=== PATIENT | male | born 1990 | race African-American/Black ===

== ENCOUNTER 2020-04-01 16:53 | Inpatient (IN) | payer SELFPAY ==
[~2020-04-01] VITALS: Ht 180.3 cm; Wt 73.5 kg
[~2020-04-01 16:53] MED LIST: FERR325T14 PO; FOLI1TAB16 PO; HYDR4TAB45 PO; HYDR500C PO; MORP30TA83 PO; OXYC15TA61 PO; OXYC30TA3 PO; PANT20TA2 PO
[2020-04-01] MEDS ORDERED: IV NORMAL SALINE 1000ML BAG 1,000 ML IV ONE (17:15)
--- NOTE | 2020-04-01 17:39 | PHYS DOC ---
Past Medical History Past Medical History: Sickle Cell Disease (JACQUELYN VASQUEZ MD) Past Surgical History: Appendectomy, Cholecystectomy (JACQUELYN VASQUEZ MD) Smoking Status: Unknown if ever smoked Alcohol Use: None Drug Use: None (JACQUELYN VASQUEZ MD) General Adult EDM: Chief Complaint: PAIN CONTROL HPI: HPI: Patient is a 29 year old who presents complaining of bilateral knee pain consistent with sickle cell pain crisis. Patient reported to nursing staff that last sickle cell crisis was 4 hours ago. History is severely limited as patient is very lethargic and has to be woken up for every question. She admits she is taking Dilaudid 1 hour prior to arrival. (JACQUELYN VASQUEZ MD) Review of Systems: Review of Systems: Unable to obtain due to lethargy (JACQUELYN VASQUEZ MD) Heart Score: Risk Factors: Risk Factors: DM, Current or recent (<one month) smoker, HTN, HLP, family history of CAD, obesity. Risk Scores: Score 0 - 3: 2.5% MACE over next 6 weeks - Discharge Home Score 4 - 6: 20.3% MACE over next 6 weeks - Admit for Clinical Observation Score 7 - 10: 72.7% MACE over next 6 weeks - Early Invasive Strategies (JACQUELYN VASQUEZ MD) Current Medications: Current Medications Medications (Trade) Dose Ordered Sig/Bianca Start Time Stop Time Status Last Admin Dose Admin Sodium Chloride 1,000 ml @ 0 mls/hr 1X ONCE 04/01/20 17:15 04/01/20 17:16 DC (JACQUELYN VASQUEZ MD) Allergies: Allergies: Allergies Coded Allergies Type Severity Reaction Last Updated Verified No Known Drug Allergies 06/19/18 No (JACQUELYN VASQUEZ MD) Physical Exam: PE: Constitutional: Well developed, well nourished, Cooperative, NAD, non-toxic appearing, lethargic HEENT: Normocephalic, atraumatic, oropharynx moist, EOMI, PERRL, no drainage from eyes, normal conjunctiva Neck: Supple, normal range of motion, no stridor Cardiovascular: RRR, 2+ radial pulses bilaterally, no edema Respiratory: CTA bilaterally, no respiratory distress, no wheezing/crackles Abdomen: Soft, nontender, nondistended, no masses Skin: Warm, dry, intact Extremities: No obvious deformities, bilateral knees: no signs of trauma, no effusion, no erythema, swelling, or warmth Neurologic: GCS 13, moves all extremities (JACQUELYN VASQUEZ MD) EKG: EKG: [] (JACQUELYN VASQUEZ MD) Radiology/Procedures: Radiology/Procedures: [] (JACQUELYN VASQUEZ MD) Course & Med Decision Making: Course & Med Decision Making Pertinent Labs and Imaging studies reviewed. (See chart for details) [] Patient is a 29-year-old with a past medical history of sickle cell who presents to the emergency room complaining of sickle cell pain crisis. Upon arrival to the emergency room patient is lethargic and becomes hypoxic when sleeping. Patient admits to taking Dilaudid 1 hour prior to arrival. It is likely that she is under the influence of narcotics which is causing her lethargy and hypoxia. She was placed on nasal cannula. Basic labs were ordered to evaluate for sickle cell pain crisis. Patient will not be given any further narcotics. We will give her fluids at this time. Patient discussed with oncoming physician who will assume care (JACQUELYN VASQUEZ MD) Dragon Disclaimer: Dragon Disclaimer: This electronic medical record was generated, in whole or in part, using a voice recognition dictation system. (JACQUELYN VASQUEZ MD) Departure Departure Impression: Primary Impression: Acute narcotic intoxication Qualified Codes: F11.920 - Opioid use, unspecified with intoxication, uncomplicated Additional Impression: Sickle cell anemia Qualified Codes: D57.1 - Sickle-cell disease without crisis Disposition: ADMITTED INPATIENT Admitting Physician: OLYA (ANIVAL HDZ Jr., DO) Condition: IMPROVED Referrals: NO PCP (PCP) JACQUELYN VASQUEZ MD April 01, 2020 17:39 ANIVAL HDZ Jr., DO April 01, 2020 20:11
[2020-04-01 18:01] LABS: CALCIUM 8.3 mg/dL (8.5-10.1); CREATININE 1.5 mg/dL (0.7-1.3); GFR 67.4; POTASSIUM 5.1 mmol/L (3.5-5.1)
[2020-04-01 18:08] LABS: ALBUMIN 4.1 g/dL (3.4-5.0); ALBUMIN/GLOBULIN RATIO 1.3 (1.0-1.7); TOTAL BILIRUBIN 2.9 mg/dL (0.2-1.0); TOTAL PROTEIN 7.2 g/dL (6.4-8.2)
[2020-04-01 18:09] LABS: BASO # 0.3 x10^3/uL (0.0-0.2); BASO % 3 % (0-3); EOS # 0.4 x10^3/uL (0.0-0.7); EOS % 4 % (0-3); LYMPH # 2.9 x10^3/uL (1.0-4.8); LYMPH % 27 % (24-48); MEAN CORPUSCULAR HEMOGLOBIN 36 pg (25-35); MEAN CORPUSCULAR HGB CONC 36 g/dL (31-37); MEAN CORPUSCULAR VOLUME 100 fL (79-100); MONO # 1.5 x10^3/uL (0.0-1.1); MONO % 14 % (0-9); NEUT # 5.7 x10^3/uL (1.8-7.7); NEUT % 52 % (31-73); PLATELET COUNT 327 x10^3/uL (140-400); RED BLOOD COUNT 1.91 x10^6/uL (4.30-5.70); RED CELL DISTRIBUTION WIDTH 24.3 % (11.5-14.5); WHITE BLOOD COUNT 10.8 x10^3/uL (4.0-11.0)
[2020-04-01 18:11] LABS: HEMATOCRIT 19.1 % (39.0-53.0)
[2020-04-01 18:41] LABS: % BANDS 1 % (0-9); % EOS 4 % (0-5); % LYMPHS 29 % (24-48); % MONOS 11 % (0-10); % SEGS 55 % (35-66); NUCLEATED RBC 5
[2020-04-01 18:45] LABS: PLT ESTIMATE ADEQUATE (ADEQUATE); POLYCHROMASIA MOD
[2020-04-01 18:46] LABS: ANISOCYTOSIS MOD; SICKLE CELLS FEW; TARGET CELLS FEW
[2020-04-01] MEDS ORDERED: NALOXONE 0.4 MG/ML VIAL. IV ONE (19:00)
[2020-04-01] MEDS ORDERED: ONDANSETRON PF 4 MG/2 ML VIAL. IV PRN (20:30)
[2020-04-01] MEDS ORDERED: HYDROmorphone 2 MG/ML VIAL IV PRN (20:30)
[2020-04-01] MEDS ORDERED: ACETAMINOPHEN 325 MG TABLET. PO PRN (20:30)
[2020-04-01] MEDS: IV NORMAL SALINE 1000ML BAG 1,000 ML IV SCH (21:30)
[2020-04-01] MEDS: ENOXAPARIN 40 MG/0.4 ML SYRINGE. SQ SCH ×2 (21:31→21:34)
--- NOTE | 2020-04-01 22:45 | PDOC1 ---
History and Physical Date of Admission Date of Admission DATE: 04/01/20 TIME: 22:45 History of Present Illness History of Present Illness Ms Krishnan is a 29 yo M (trans female) w/ PMHx sickle cell disease who presents to the emergency room complaining of sickle cell pain crisis. Upon arrival to the emergency room patient is lethargic and became hypoxic when sleeping. Patient admits to taking Dilaudid 1 hour prior to arrival. Found hypoxic into the mid 80s, placed on nasal cannula. Hb 7, reticulocyte 14, bilirubin 2.9, CR 1.5. Placed on IV fluids and admitted for further care Past Medical History Heme/Onc: Anemia NOS, Sickle cell disease Past Surgical History Past Surgical History: Appendectomy, Cholecystectomy Family History Family History: Alcohol Abuse, Depression Social History Smoke: <1 pack per day ALCOHOL: occassional Drugs: Heroin Current Problem List Problem List Problems Medical Problems: (1) Acute narcotic intoxication Status: Acute Current Medications Current Medications Current Medications Sodium Chloride 1,000 ml @ 0 mls/hr 1X ONCE IV Last administered on 04/01/20at 17:48; Start 04/01/20 at 17:15; Stop 04/01/20 at 17:16; Status DC Naloxone HCl (Narcan) 0.4 mg 1X ONCE IV Last administered on 04/01/20at 19:19; Start 04/01/20 at 19:00; Stop 04/01/20 at 19:01; Status DC Ferrous Sulfate (Feosol) 325 mg DAILY PO ; Start 04/02/20 at 09:00 Pantoprazole Sodium (Protonix) 40 mg DAILYAC PO ; Start 04/02/20 at 07:30 Sodium Chloride 1,000 ml @ 150 mls/hr Q6H40M IV Last administered on 04/01/20at 21:30; Start 04/01/20 at 21:00 Ondansetron HCl (Zofran) 4 mg PRN Q4HRS PRN IV NAUSEA/VOMITING 1ST CHOICE; Start 04/01/20 at 20:30 Acetaminophen (Tylenol) 650 mg PRN Q4HRS PRN PO TEMP OVER 100.4F OR MILD PAIN; Start 04/01/20 at 20:30 Hydromorphone HCl (Dilaudid) 0.5 mg PRN Q2HRS PRN IV SEVERE PAIN 7-10; Start 04/01/20 at 20:30 Enoxaparin Sodium (Lovenox 40mg Syringe) 40 mg Q24H SQ ; Start 04/01/20 at 21:00 Oxycodone HCl (Roxicodone) 5 mg PRN Q6HRS PRN PO MODERATE PAIN 4-6; Start 04/01/20 at 20:30 Active Scripts Active Protonix (Pantoprazole Sodium) 20 Mg Tablet.dr 1 Tab PO DAILY Ferrous Sulfate 325 Mg Tablet 1 Tab PO DAILY Allergies Allergies: Coded Allergies: No Known Drug Allergies (Unverified , 06/19/18) ROS General: YES: Fatigue, Malaise; No: Chills, Night Sweats, Appetite, Other PSYCHOLOGICAL ROS: YES: Anxiety; No: Behavioral Disorder, Concentration difficultie, Decreased libido, Depression, Disorientation, Hallucinations, Hostility, Irritablity, Memory difficulties, Mood Swings, Obsessive thoughts, Physical abuse, Sexual abuse, Sl eep disturbances, Suicidal ideation, Other Eyes: No Blurry vision, No Decreased vision, No Double vision, No Dry eyes, No Excessive tearing, No Eye Pain, No Itchy Eyes, No Loss of vision, No Photophobia, No Scotomata, No Uses contacts, No Uses glasses, No Other HEENT: No: Heacaches, Visual Changes, Hearing change, Nasal congestion, Nasal discharge, Oral lesions, Sinus pain, Sore Throat, Epistaxis, Sneezing, Snoring, Tinnitus, Vertigo, Vocal changes, Other ALLERGY AND IMMUNOLOGY: No: Hives, Insect Bite Sensitivity, Itchy/Watery Eyes, Nasal Congestion, Post Nasal Drip, Seasonal Allergies, Other Hematological and Lymphatic: YES: Blood Transfusions; No: Bleeding Problems, Blood Clots, Brusing, Night Sweats, Pallor, Swollen Lymph Nodes, Other ENDOCRINE: No: Breast Changes, Galactorrhea, Hair Pattern Changes, Hot Flashes, Malaise/lethargy, Mood Swings, Palpitations, Polydipsia/polyuria, Skin Changes, Temperature Intolerance, Unexpected Weight Changes, Other Breast: No New/Changing Breast Lumps, No Nipple changes, No Nipple discharge, No Other Respiratory: No: Cough, Hemoptysis, Orthopnea, Pleuritic Pain, Shortness of breath, SOB with excertion, Sputum Changes, Stridor, Tachypnea, Wheezing, Other Cardiovascular: No Chest Pain, No Palpitations, No Orthopnea, No Paroxysmal Noc. Dyspnea, No Edema, No Lt Headedness, No Other Gastrointestinal: No Nausea, No Vomiting, No Abdominal Pain, No Diarrhea, No Constipation, No Melena, No Hematochezia, No Other Genitourinary: No Dysuria, No Frequency, No Incontinence, No Hematuria, No Retention, No Discharge, No Urgency, No Pain, No Flank Pain, No Other, No , No , No , No , No , No , No Musculoskeletal: Yes Joint Pain, Yes Muscle Pain; No Gait Disturbance, No Joint Stiffness, No Joint Swelling, No Muscular Weakness, No Pain In:, No Swelling In:, No Other Neurological: No Behavorial Changes, No Bowel/Bladder ControlChng, No Confusion, No Dizziness, No Gait Disturbance, No Headaches, No Impaired Coord/balance, No Memory Loss, No Numbness/Tingling, No Seizures, No Speech Problems, No Tremors, No Visual Changes, No Weakness, No Other Skin: No Dry Skin, No Eczema, No Hair Changes, No Lumps, No Mole Changes, No Mottling, No Nail Changes, No Pruritus, No Rash, No Skin Lesion Changes, No Other, No Acne Physical Exam General: Cooperative, mild distress, Other (Drowsy) HEENT: Atraumatic, PERRLA, EOMI, Mucous membr. moist/pink Lungs: Clear to auscultation, Normal air movement Heart: S1S2, RRR, no thrills, no rubs, no gallops, no murmurs Abdomen: Normal bowel sounds, Soft, No tenderness, No hepatosplenomegaly, No masses Rectal Exam: not examined Extremities: No clubbing, No cyanosis, No edema, Normal pulses, No tend erness/swelling Skin: No rashes, No breakdown, No significant lesion Neuro: Normal speech, Strength at 5/5 X4 ext, Normal tone, Sensation intact, Cranial nerves 3-12 NL, Reflexes 2+ Vitals Vitals Vital Signs Date Time Temp Pulse Resp B/P (MAP) Pulse Ox O2 Delivery O2 Flow Rate FiO2 04/01/20 21:15 76 16 99 04/01/20 17:00 98.3 137/85 (102) Room Air 98.3 Labs Labs Laboratory Tests Test 04/01/20 17:44 White Blood Count 10.8 x10^3/uL (4.0-11.0) Red Blood Count 1.92 x10^6/uL (4.30-5.70) Hemoglobin 7.0 g/dL (13.0-17.5) Hematocrit 19.1 % (39.0-53.0) Mean Corpuscular Volume 100 fL (79-100) Mean Corpuscular Hemoglobin 36 pg (25-35) Mean Corpuscular Hemoglobin Concent 36 g/dL (31-37) Red Cell Distribution Width 24.3 % (11.5-14.5) Platelet Count 327 x10^3/uL (140-400) Neutrophils (%) (Auto) 52 % (31-73) Lymphocytes (%) (Auto) 27 % (24-48) Monocytes (%) (Auto) 14 % (0-9) Eosinophils (%) (Auto) 4 % (0-3) Basophils (%) (Auto) 3 % (0-3) Neutrophils # (Auto) 5.7 x10^3/uL (1.8-7.7) Lymphocytes # (Auto) 2.9 x10^3/uL (1.0-4.8) Monocytes # (Auto) 1.5 x10^3/uL (0.0-1.1) Eosinophils # (Auto) 0.4 x10^3/uL (0.0-0.7) Basophils # (Auto) 0.3 x10^3/uL (0.0-0.2) Segmented Neutrophils % 55 % (35-66) Band Neutrophils % 1 % (0-9) Lymphocytes % 29 % (24-48) Monocytes % 11 % (0-10) Eosinophils % 4 % (0-5) Nucleated Red Blood Cells 5 Platelet Estimate Adequate (ADEQUATE) Polychromasia Mod Anisocytosis Mod Sickle Cells Few Target Cells Few Absolute Reticulocyte Count 0.272 x10^6/uL (0.020-0.120) Percent Reticulocyte Count 14.2 % (0.5-2.3) Immature Reticulocyte Fraction 0.73 (0.20-0.60) Sodium Level 141 mmol/L (136-145) Potassium Level 5.1 mmol/L (3.5-5.1) Chloride Level 109 mmol/L (98-107) Carbon Dioxide Level 25 mmol/L (21-32) Anion Gap 7 (6-14) Blood Urea Nitrogen 23 mg/dL (8-26) Creatinine 1.5 mg/dL (0.7-1.3) Estimated GFR (Cockcroft-Gault) 67.4 BUN/Creatinine Ratio 15 (6-20) Glucose Level 89 mg/dL (70-99) Calcium Level 8.3 mg/dL (8.5-10.1) Total Bilirubin 2.9 mg/dL (0.2-1.0) Aspartate Amino Transf (AST/SGOT) 55 U/L (15-37) Alanine Aminotransferase (ALT/SGPT) 21 U/L (16-63) Alkaline Phosphatase 55 U/L (46-116) Total Protein 7.2 g/dL (6.4-8.2) Albumin 4.1 g/dL (3.4-5.0) Albumin/Globulin Ratio 1.3 (1.0-1.7) Laboratory Tests Test 04/01/20 17:44 White Blood Count 10.8 x10^3/uL (4.0-11.0) Red Blood Count 1.92 x10^6/uL (4.30-5.70) Hemoglobin 7.0 g/dL (13.0-17.5) Hematocrit 19.1 % (39.0-53.0) Mean Corpuscular Volume 100 fL (79-100) Mean Corpuscular Hemoglobin 36 pg (25-35) Mean Corpuscular Hemoglobin Concent 36 g/dL (31-37) Red Cell Distribution Width 24.3 % (11.5-14.5) Platelet Count 327 x10^3/uL (140-400) Neutrophils (%) (Auto) 52 % (31-73) Lymphocytes (%) (Auto) 27 % (24-48) Monocytes (%) (Auto) 14 % (0-9) Eosinophils (%) (Auto) 4 % (0-3) Basophils (%) (Auto) 3 % (0-3) Neutrophils # (Auto) 5.7 x10^3/uL (1.8-7.7) Lymphocytes # (Auto) 2.9 x10^3/uL (1.0-4.8) Monocytes # (Auto) 1.5 x10^3/uL (0.0-1.1) Eosinophils # (Auto) 0.4 x10^3/uL (0.0-0.7) Basophils # (Auto) 0.3 x10^3/uL (0.0-0.2) Segmented Neutrophils % 55 % (35-66) Band Neutrophils % 1 % (0-9) Lymphocytes % 29 % (24-48) Monocytes % 11 % (0-10) Eosinophils % 4 % (0-5) Nucleated Red Blood Cells 5 Platelet Estimate Adequate (ADEQUATE) Polychromasia Mod Anisocytosis Mod Sickle Cells Few Target Cells Few Absolute Reticulocyte Count 0.272 x10^6/uL (0.020-0.120) Percent Reticulocyte Count 14.2 % (0.5-2.3) Immature Reticulocyte Fraction 0.73 (0.20-0.60) Sodium Level 141 mmol/L (136-145) Potassium Level 5.1 mmol/L (3.5-5.1) Chloride Level 109 mmol/L (98-107) Carbon Dioxide Level 25 mmol/L (21-32) Anion Gap 7 (6-14) Blood Urea Nitrogen 23 mg/dL (8-26) Creatinine 1.5 mg/dL (0.7-1.3) Estimated GFR (Cockcroft-Gault) 67.4 BUN/Creatinine Ratio 15 (6-20) Glucose Level 89 mg/dL (70-99) Calcium Level 8.3 mg/dL (8.5-10.1) Total Bilirubin 2.9 mg/dL (0.2-1.0) Aspartate Amino Transf (AST/SGOT) 55 U/L (15-37) Alanine Aminotransferase (ALT/SGPT) 21 U/L (16-63) Alkaline Phosphatase 55 U/L (46-116) Total Protein 7.2 g/dL (6.4-8.2) Albumin 4.1 g/dL (3.4-5.0) Albumin/Globulin Ratio 1.3 (1.0-1.7) VTE Prophylaxis Ordered VTE Prophylaxis Devices: No VTE Pharmacological Prophylaxi: Yes Assessment/Plan Assessment/Plan A/P: Acute anemia - 2/2 SCD crisis, as needed Dilaudid low dose if she wakes up in the next 4 hours. Narcan was necessary earlier in the shift. Will type and screen, transfuse if Hb drops below 7 tomorrow morning. Acute narcotic intoxication - h/o heroin abuse listed on her chart. Will try to avoid excessive opioids, but they are indicated for SCD pain crisis Sickle cell anemia - as above Elevated bilirubin - 2/2 SCD, will monitor MICHEAL - vasomotor nephropathy from SCD crisis, will hydrate FEN - 150cc/hr NSS, general diet PPX - lovenox FULL CODE DIspo - inpatient RIFFEL,JOSUÉ Mason MD April 01, 2020 22:45
[2020-04-02] VITALS (7 sets, daily range): BP systolic 102–129; BP diastolic 53–85
[2020-04-02 02:48] LABS: BASO # 0.2 x10^3/uL (0.0-0.2); BASO % 2 % (0-3); EOS # 0.4 x10^3/uL (0.0-0.7); EOS % 4 % (0-3); LYMPH # 2.7 x10^3/uL (1.0-4.8); LYMPH % 31 % (24-48); MEAN CORPUSCULAR HEMOGLOBIN 37 pg (25-35); MEAN CORPUSCULAR HGB CONC 37 g/dL (31-37); MEAN CORPUSCULAR VOLUME 101 fL (79-100); MONO # 1.4 x10^3/uL (0.0-1.1); MONO % 16 % (0-9); NEUT % 46 % (31-73); PLATELET COUNT 298 x10^3/uL (140-400); RED BLOOD COUNT 1.75 x10^6/uL (4.30-5.70); RED CELL DISTRIBUTION WIDTH 24.8 % (11.5-14.5); WHITE BLOOD COUNT 8.6 x10^3/uL (4.0-11.0)
[2020-04-02 02:54] LABS: HEMOGLOBIN 6.5 g/dL (13.0-17.5)
[2020-04-02 02:55] LABS: HEMATOCRIT 17.7 % (39.0-53.0)
[2020-04-02 03:25] LABS: ALBUMIN 3.6 g/dL (3.4-5.0); ALBUMIN/GLOBULIN RATIO 1.1 (1.0-1.7); CALCIUM 8.2 mg/dL (8.5-10.1); CREATININE 1.4 mg/dL (0.7-1.3); POTASSIUM 4.7 mmol/L (3.5-5.1); TOTAL BILIRUBIN 2.3 mg/dL (0.2-1.0); TOTAL PROTEIN 6.8 g/dL (6.4-8.2)
[2020-04-02] MEDS: IV NORMAL SALINE 1000ML BAG 1,000 ML IV SCH ×3 (04:13→23:00)
[2020-04-02] MEDS: PANTOPRAZOLE 40 MG TABLET.DR. PO SCH (07:30)
--- NOTE | 2020-04-02 07:39 | NUR ---
Pt assessment taken from Pt history because Pt was noncompliant. Pt very impulsive then would quickly fall fast asleep.
--- NOTE | 2020-04-02 08:40 | NUR ---
Pt refusing to sign consent for blood transfusion.
[2020-04-02] MEDS: FERROUS SULFATE 325 MG TABLET. PO SCH (09:00)
--- NOTE | 2020-04-02 10:44 | PDOC ---
PROGRESS NOTES History of Present Illness History of Present Illness VTE Prophylaxis Ordered VTE Prophylaxis Devices: No VTE Pharmacological Prophylaxi: Yes Assessment/Plan Assessment/Plan A/P: Acute anemia - 2/2 SCD crisis, as needed Dilaudid low dose if she wakes up in the next 4 hours. Narcan was necessary earlier in the shift. Will type and screen, transfuse if Hb drops below 7 tomorrow morning. Acute narcotic intoxication - h/o heroin abuse listed on her chart. Will try to avoid excessive opioids, but they are indicated for SCD pain crisis Sickle cell anemia - as above Elevated bilirubin - 2/2 SCD, will monitor MICHEAL - vasomotor nephropathy from SCD crisis, will hydrate FEN - 150cc/hr NSS, general diet PPX - lovenox FULL CODE DIspo - inpatient consult hematology IV PAIN CONTROL 04/02 REFUSED TRANSFUSION THIS AM D/W RN Vitals Vitals Vital Signs Date Time Temp Pulse Resp B/P (MAP) Pulse Ox O2 Delivery O2 Flow Rate FiO2 04/02/20 08:15 Room Air 04/02/20 07:20 97.8 63 18 129/85 (100) 95 2.0 97.8 Physical Exam General: Oriented X3, Cooperative, mild distress, Other (Drowsy) Lungs: Clear Abdomen: Normal bowel sounds, Soft, No tenderness, No hepatosplenomegaly, No masses Extremities: No clubbing, No cyanosis, No edema, Normal pulses, No tenderness/swelling Skin: No rashes, No breakdown, No significant lesion Labs LABS Laboratory Tests Test 04/01/20 17:44 04/02/20 01:55 White Blood Count 10.8 x10^3/uL (4.0-11.0) 8.6 x10^3/uL (4.0-11.0) Red Blood Count 1.92 x10^6/uL (4.30-5.70) 1.75 x10^6/uL (4.30-5.70) Hemoglobin 7.0 g/dL (13.0-17.5) 6.5 g/dL (13.0-17.5) Hematocrit 19.1 % (39.0-53.0) 17.7 % (39.0-53.0) Mean Corpuscular Volume 100 fL (79-100) 101 fL (79-100) Mean Corpuscular Hemoglobin 36 pg (25-35) 37 pg (25-35) Mean Corpuscular Hemoglobin Concent 36 g/dL (31-37) 37 g/dL (31-37) Red Cell Distribution Width 24.3 % (11.5-14.5) 24.8 % (11.5-14.5) Platelet Count 327 x10^3/uL (140-400) 298 x10^3/uL (140-400) Neutrophils (%) (Auto) 52 % (31-73) 46 % (31-73) Lymphocytes (%) (Auto) 27 % (24-48) 31 % (24-48) Monocytes (%) (Auto) 14 % (0-9) 16 % (0-9) Eosinophils (%) (Auto) 4 % (0-3) 4 % (0-3) Basophils (%) (Auto) 3 % (0-3) 2 % (0-3) Neutrophils # (Auto) 5.7 x10^3/uL (1.8-7.7) 4.0 x10^3/uL (1.8-7.7) Lymphocytes # (Auto) 2.9 x10^3/uL (1.0-4.8) 2.7 x10^3/uL (1.0-4.8) Monocytes # (Auto) 1.5 x10^3/uL (0.0-1.1) 1.4 x10^3/uL (0.0-1.1) Eosinophils # (Auto) 0.4 x10^3/uL (0.0-0.7) 0.4 x10^3/uL (0.0-0.7) Basophils # (Auto) 0.3 x10^3/uL (0.0-0.2) 0.2 x10^3/uL (0.0-0.2) Segmented Neutrophils % 55 % (35-66) Band Neutrophils % 1 % (0-9) Lymphocytes % 29 % (24-48) Monocytes % 11 % (0-10) Eosinophils % 4 % (0-5) Nucleated Red Blood Cells 5 Platelet Estimate Adequate (ADEQUATE) Polychromasia Mod Anisocytosis Mod Sickle Cells Few Target Cells Few Absolute Reticulocyte Count 0.272 x10^6/uL (0.020-0.120) 0.262 x10^6/uL (0.020-0.120) Percent Reticulocyte Count 14.2 % (0.5-2.3) 15.0 % (0.5-2.3) Immature Reticulocyte Fraction 0.73 (0.20-0.60) 0.77 (0.20-0.60) Sodium Level 141 mmol/L (136-145) 144 mmol/L (136-145) Potassium Level 5.1 mmol/L (3.5-5.1) 4.7 mmol/L (3.5-5.1) Chloride Level 109 mmol/L (98-107) 110 mmol/L (98-107) Carbon Dioxide Level 25 mmol/L (21-32) 25 mmol/L (21-32) Anion Gap 7 (6-14) 9 (6-14) Blood Urea Nitrogen 23 mg/dL (8-26) 20 mg/dL (8-26) Creatinine 1.5 mg/dL (0.7-1.3) 1.4 mg/dL (0.7-1.3) Estimated GFR (Cockcroft-Gault) 67.4 73.0 BUN/Creatinine Ratio 15 (6-20) 14 (6-20) Glucose Level 89 mg/dL (70-99) 95 mg/dL (70-99) Calcium Level 8.3 mg/dL (8.5-10.1) 8.2 mg/dL (8.5-10.1) Total Bilirubin 2.9 mg/dL (0.2-1.0) 2.3 mg/dL (0.2-1.0) Aspartate Amino Transf (AST/SGOT) 55 U/L (15-37) 41 U/L (15-37) Alanine Aminotransferase (ALT/SGPT) 21 U/L (16-63) 21 U/L (16-63) Alkaline Phosphatase 55 U/L (46-116) 52 U/L (46-116) Total Protein 7.2 g/dL (6.4-8.2) 6.8 g/dL (6.4-8.2) Albumin 4.1 g/dL (3.4-5.0) 3.6 g/dL (3.4-5.0) Albumin/Globulin Ratio 1.3 (1.0-1.7) 1.1 (1.0-1.7) Assessment and Plan Assessmemt and Plan Problems Medical Problems: (1) Acute narcotic intoxication Status: Acute Comment Review of Relevant I have reviewed the following items amos (where applicable) has been applied. Labs Laboratory Tests Test 04/01/20 17:44 04/02/20 01:55 White Blood Count 10.8 x10^3/uL (4.0-11.0) 8.6 x10^3/uL (4.0-11.0) Red Blood Count 1.92 x10^6/uL (4.30-5.70) 1.75 x10^6/uL (4.30-5.70) Hemoglobin 7.0 g/dL (13.0-17.5) 6.5 g/dL (13.0-17.5) Hematocrit 19.1 % (39.0-53.0) 17.7 % (39.0-53.0) Mean Corpuscular Volume 100 fL (79-100) 101 fL (79-100) Mean Corpuscular Hemoglobin 36 pg (25-35) 37 pg (25-35) Mean Corpuscular Hemoglobin Concent 36 g/dL (31-37) 37 g/dL (31-37) Red Cell Distribution Width 24.3 % (11.5-14.5) 24.8 % (11.5-14.5) Platelet Count 327 x10^3/uL (140-400) 298 x10^3/uL (140-400) Neutrophils (%) (Auto) 52 % (31-73) 46 % (31-73) Lymphocytes (%) (Auto) 27 % (24-48) 31 % (24-48) Monocytes (%) (Auto) 14 % (0-9) 16 % (0-9) Eosinophils (%) (Auto) 4 % (0-3) 4 % (0-3) Basophils (%) (Auto) 3 % (0-3) 2 % (0-3) Neutrophils # (Auto) 5.7 x10^3/uL (1.8-7.7) 4.0 x10^3/uL (1.8-7.7) Lymphocytes # (Auto) 2.9 x10^3/uL (1.0-4.8) 2.7 x10^3/uL (1.0-4.8) Monocytes # (Auto) 1.5 x10^3/uL (0.0-1.1) 1.4 x10^3/uL (0.0-1.1) Eosinophils # (Auto) 0.4 x10^3/uL (0.0-0.7) 0.4 x10^3/uL (0.0-0.7) Basophils # (Auto) 0.3 x10^3/uL (0.0-0.2) 0.2 x10^3/uL (0.0-0.2) Segmented Neutrophils % 55 % (35-66) Band Neutrophils % 1 % (0-9) Lymphocytes % 29 % (24-48) Monocytes % 11 % (0-10) Eosinophils % 4 % (0-5) Nucleated Red Blood Cells 5 Platelet Estimate Adequate (ADEQUATE) Polychromasia Mod Anisocytosis Mod Sickle Cells Few Target Cells Few Absolute Reticulocyte Count 0.272 x10^6/uL (0.020-0.120) 0.262 x10^6/uL (0.020-0.120) Percent Reticulocyte Count 14.2 % (0.5-2.3) 15.0 % (0.5-2.3) Immature Reticulocyte Fraction 0.73 (0.20-0.60) 0.77 (0.20-0.60) Sodium Level 141 mmol/L (136-145) 144 mmol/L (136-145) Potassium Level 5.1 mmol/L (3.5-5.1) 4.7 mmol/L (3.5-5.1) Chloride Level 109 mmol/L (98-107) 110 mmol/L (98-107) Carbon Dioxide Level 25 mmol/L (21-32) 25 mmol/L (21-32) Anion Gap 7 (6-14) 9 (6-14) Blood Urea Nitrogen 23 mg/dL (8-26) 20 mg/dL (8-26) Creatinine 1.5 mg/dL (0.7-1.3) 1.4 mg/dL (0.7-1.3) Estimated GFR (Cockcroft-Gault) 67.4 73.0 BUN/Creatinine Ratio 15 (6-20) 14 (6-20) Glucose Level 89 mg/dL (70-99) 95 mg/dL (70-99) Calcium Level 8.3 mg/dL (8.5-10.1) 8.2 mg/dL (8.5-10.1) Total Bilirubin 2.9 mg/dL (0.2-1.0) 2.3 mg/dL (0.2-1.0) Aspartate Amino Transf (AST/SGOT) 55 U/L (15-37) 41 U/L (15-37) Alanine Aminotransferase (ALT/SGPT) 21 U/L (16-63) 21 U/L (16-63) Alkaline Phosphatase 55 U/L (46-116) 52 U/L (46-116) Total Protein 7.2 g/dL (6.4-8.2) 6.8 g/dL (6.4-8.2) Albumin 4.1 g/dL (3.4-5.0) 3.6 g/dL (3.4-5.0) Albumin/Globulin Ratio 1.3 (1.0-1.7) 1.1 (1.0-1.7) Laboratory Tests Test 04/01/20 17:44 04/02/20 01:55 White Blood Count 10.8 x10^3/uL (4.0-11.0) 8.6 x10^3/uL (4.0-11.0) Red Blood Count 1.92 x10^6/uL (4.30-5.70) 1.75 x10^6/uL (4.30-5.70) Hemoglobin 7.0 g/dL (13.0-17.5) 6.5 g/dL (13.0-17.5) Hematocrit 19.1 % (39.0-53.0) 17.7 % (39.0-53.0) Mean Corpuscular Volume 100 fL (79-100) 101 fL (79-100) Mean Corpuscular Hemoglobin 36 pg (25-35) 37 pg (25-35) Mean Corpuscular Hemoglobin Concent 36 g/dL (31-37) 37 g/dL (31-37) Red Cell Distribution Width 24.3 % (11.5-14.5) 24.8 % (11.5-14.5) Platelet Count 327 x10^3/uL (140-400) 298 x10^3/uL (140-400) Neutrophils (%) (Auto) 52 % (31-73) 46 % (31-73) Lymphocytes (%) (Auto) 27 % (24-48) 31 % (24-48) Monocytes (%) (Auto) 14 % (0-9) 16 % (0-9) Eosinophils (%) (Auto) 4 % (0-3) 4 % (0-3) Basophils (%) (Auto) 3 % (0-3) 2 % (0-3) Neutrophils # (Auto) 5.7 x10^3/uL (1.8-7.7) 4.0 x10^3/uL (1.8-7.7) Lymphocytes # (Auto) 2.9 x10^3/uL (1.0-4.8) 2.7 x10^3/uL (1.0-4.8) Monocytes # (Auto) 1.5 x10^3/uL (0.0-1.1) 1.4 x10^3/uL (0.0-1.1) Eosinophils # (Auto) 0.4 x10^3/uL (0.0-0.7) 0.4 x10^3/uL (0.0-0.7) Basophils # (Auto) 0.3 x10^3/uL (0.0-0.2) 0.2 x10^3/uL (0.0-0.2) Segmented Neutrophils % 55 % (35-66) Band Neutrophils % 1 % (0-9) Lymphocytes % 29 % (24-48) Monocytes % 11 % (0-10) Eosinophils % 4 % (0-5) Nucleated Red Blood Cells 5 Platelet Estimate Adequate (ADEQUATE) Polychromasia Mod Anisocytosis Mod Sickle Cells Few Target Cells Few Absolute Reticulocyte Count 0.272 x10^6/uL (0.020-0.120) 0.262 x10^6/uL (0.020-0.120) Percent Reticulocyte Count 14.2 % (0.5-2.3) 15.0 % (0.5-2.3) Immature Reticulocyte Fraction 0.73 (0.20-0.60) 0.77 (0.20-0.60) Sodium Level 141 mmol/L (136-145) 144 mmol/L (136-145) Potassium Level 5.1 mmol/L (3.5-5.1) 4.7 mmol/L (3.5-5.1) Chloride Level 109 mmol/L (98-107) 110 mmol/L (98-107) Carbon Dioxide Level 25 mmol/L (21-32) 25 mmol/L (21-32) Anion Gap 7 (6-14) 9 (6-14) Blood Urea Nitrogen 23 mg/dL (8-26) 20 mg/dL (8-26) Creatinine 1.5 mg/dL (0.7-1.3) 1.4 mg/dL (0.7-1.3) Estimated GFR (Cockcroft-Gault) 67.4 73.0 BUN/Creatinine Ratio 15 (6-20) 14 (6-20) Glucose Level 89 mg/dL (70-99) 95 mg/dL (70-99) Calcium Level 8.3 mg/dL (8.5-10.1) 8.2 mg/dL (8.5-10.1) Total Bilirubin 2.9 mg/dL (0.2-1.0) 2.3 mg/dL (0.2-1.0) Aspartate Amino Transf (AST/SGOT) 55 U/L (15-37) 41 U/L (15-37) Alanine Aminotransferase (ALT/SGPT) 21 U/L (16-63) 21 U/L (16-63) Alkaline Phosphatase 55 U/L (46-116) 52 U/L (46-116) Total Protein 7.2 g/dL (6.4-8.2) 6.8 g/dL (6.4-8.2) Albumin 4.1 g/dL (3.4-5.0) 3.6 g/dL (3.4-5.0) Albumin/Globulin Ratio 1.3 (1.0-1.7) 1.1 (1.0-1.7) Medications Current Medications Sodium Chloride 1,000 ml @ 0 mls/hr 1X ONCE IV Last administered on 04/01/20at 17:48; Start 04/01/20 at 17:15; Stop 04/01/20 at 17:16; Status DC Naloxone HCl (Narcan) 0.4 mg 1X ONCE IV Last administered on 04/01/20at 19:19; Start 04/01/20 at 19:00; Stop 04/01/20 at 19:01; Status DC Ferrous Sulfate (Feosol) 325 mg DAILY PO ; Start 04/02/20 at 09:00 Pantoprazole Sodium (Protonix) 40 mg DAILYAC PO ; Start 04/02/20 at 07:30 Sodium Chloride 1,000 ml @ 150 mls/hr Q6H40M IV Last administered on 04/02/20at 04:13; Start 04/01/20 at 21:00 Ondansetron HCl (Zofran) 4 mg PRN Q4HRS PRN IV NAUSEA/VOMITING 1ST CHOICE; Start 04/01/20 at 20:30 Acetaminophen (Tylenol) 650 mg PRN Q4HRS PRN PO TEMP OVER 100.4F OR MILD PAIN; Start 04/01/20 at 20:30 Hydromorphone HCl (Dilaudid) 0.5 mg PRN Q2HRS PRN IV SEVERE PAIN 7-10; Start 04/01/20 at 20:30 Enoxaparin Sodium (Lovenox 40mg Syringe) 40 mg Q24H SQ ; Start 04/01/20 at 21:00 Oxycodone HCl (Roxicodone) 5 mg PRN Q6HRS PRN PO MODERATE PAIN 4-6; Start 04/01/20 at 20:30 Active Scripts Active Protonix (Pantoprazole Sodium) 20 Mg Tablet.dr 1 Tab PO DAILY Ferrous Sulfate 325 Mg Tablet 1 Tab PO DAILY Ms Contin (Morphine Sulfate) 30 Mg Tablet.er 1 Tab PO BID Hydrea (Hydroxyurea) 500 Mg Capsule 500 Mg PO DAILY Oxycodone Hcl 30 Mg Tablet 30 Mg PO PRN Q6HRS PRN Folic Acid 1 Mg Tablet 1 Mg PO DAILY Vitals/I & O Vital Sign - Last 24 Hours 04/01/20 04/01/20 04/01/20 04/01/20 17:00 17:03 17:33 18:03 Temp 98.3 98.3 Pulse 73 74 74 70 Resp 18 17 15 15 B/P (MAP) 137/85 (102) Pulse Ox 93 93 98 100 O2 Delivery Room Air 04/01/20 04/01/20 04/01/2020 18:33 19:03 19:33 20:15 Pulse 72 76 79 79 Resp 19 14 16 Pulse Ox 100 99 99 99 04/01/20 04/01/20 04/01/20 04/01/20 20:45 21:00 21:15 23:56 Pulse 76 76 76 Resp 16 16 16 Pulse Ox 99 99 99 O2 Delivery Nasal Cannula O2 Flow Rate 2.0 04/02/20 04/02/20 04/02/20 04/02/20 00:06 03:01 07:20 08:15 Temp 98.7 98.6 97.8 98.7 98.6 97.8 Pulse 79 89 63 Resp 19 19 18 B/P (MAP) 102/57 (72) 120/72 (88) 129/85 (100) Pulse Ox 93 94 95 O2 Delivery Nasal Cannula Nasal Cannula Nasal Cannula Room Air O2 Flow Rate 2.0 2.0 2.0 Intake and Output 04/01/20 04/01/20 04/02/20 15:00 23:00 07:00 Intake Total 1000 ml 1260 ml Balance 1000 ml 1260 ml DAYTON CR MD April 02, 2020 10:44
--- NOTE | 2020-04-02 11:00 | NUR ---
Dr. Ty made aware.
--- NOTE | 2020-04-02 13:40 | NUR ---
SS following for discharge planning. SS reviewed pt chart and discussed with pt RN. Pt is from home and is currently on room air. SS will continue to follow for discharge planning.
--- NOTE | 2020-04-02 19:00 | NUR ---
Asked Pt about administration of Blood. Pt has PRBC x1 ordered Pt refused.
[2020-04-02] MEDS: ENOXAPARIN 40 MG/0.4 ML SYRINGE. SQ SCH (20:45)
[2020-04-03 02:52] VITALS: BP 107/69
[2020-04-03 04:54] LABS: BASO # 0.2 x10^3/uL (0.0-0.2); BASO % 2 % (0-3); EOS # 0.4 x10^3/uL (0.0-0.7); EOS % 4 % (0-3); LYMPH # 3.7 x10^3/uL (1.0-4.8); LYMPH % 36 % (24-48); MEAN CORPUSCULAR HEMOGLOBIN 37 pg (25-35); MEAN CORPUSCULAR HGB CONC 37 g/dL (31-37); MEAN CORPUSCULAR VOLUME 101 fL (79-100); MONO # 1.4 x10^3/uL (0.0-1.1); MONO % 13 % (0-9); NEUT # 4.5 x10^3/uL (1.8-7.7); NEUT % 45 % (31-73); PLATELET COUNT 341 x10^3/uL (140-400); RED CELL DISTRIBUTION WIDTH 24.7 % (11.5-14.5); WHITE BLOOD COUNT 10.2 x10^3/uL (4.0-11.0)
[2020-04-03 05:17] LABS: HEMATOCRIT 19.1 % (39.0-53.0)
[2020-04-03 05:26] LABS: ALBUMIN 3.4 g/dL (3.4-5.0); ALBUMIN/GLOBULIN RATIO 1.2 (1.0-1.7); CALCIUM 8.3 mg/dL (8.5-10.1); CREATININE 1.2 mg/dL (0.7-1.3); GFR 87.2; POTASSIUM 4.9 mmol/L (3.5-5.1); TOTAL BILIRUBIN 2.1 mg/dL (0.2-1.0); TOTAL PROTEIN 6.3 g/dL (6.4-8.2)
[2020-04-03] MEDS: IV NORMAL SALINE 1000ML BAG 1,000 ML IV SCH ×3 (05:42→19:10)
--- NOTE | 2020-04-03 05:47 | NUR ---
Pt would not engage in conversation when repeatedly asked about getting blood transfusion. Lab called a critical result Hct 19.1 and Hgb 7.0.. notified at 0520. Pt still refusing Blood.
[2020-04-03 07:00] VITALS: BP 123/65
[2020-04-03] MEDS: PANTOPRAZOLE 40 MG TABLET.DR. PO SCH (07:30)
--- NOTE | 2020-04-03 08:30 | NUR ---
Refused to speak, keeps eyes closed. Assessment completed. Ate Breakfast and 3 single servings of cereal with 10 pks of sugar, cartons of milk and asked for 2 cans of soda. Refused am meds. Cont. monitor.
[2020-04-03] MEDS: FERROUS SULFATE 325 MG TABLET. PO SCH (09:00)
--- NOTE | 2020-04-03 09:18 | PDOC ---
PROGRESS NOTES Chief Complaint Chief Complaint A/P: Acute anemia - 2/2 SCD crisis, as needed Dilaudid low dose if she wakes up in the next 4 hours. Narcan was necessary earlier in the shift. Will type and screen, transfuse if Hb drops below 7 tomorrow morning. Acute narcotic intoxication - h/o heroin abuse listed on her chart. Will try to avoid excessive opioids, but they are indicated for SCD pain crisis Sickle cell anemia - as above Elevated bilirubin - 2/2 SCD, will monitor MICHEAL - vasomotor nephropathy from SCD crisis, will hydrate FEN - 150cc/hr NSS, general diet PPX - lovenox FULL CODE DIspo - inpatient consult hematology IV PAIN CONTROL History of Present Illness History of Present Illness Ms Krishnan is a 29 yo M (trans female) w/ PMHx sickle cell disease who presents to the emergency room complaining of sickle cell pain crisis. Upon arrival to the emergency room patient is lethargic and became hypoxic when sleeping. Patient admits to taking Dilaudid 1 hour prior to arrival. Found hypoxic into the mid 80s, placed on nasal cannula. Hb 7, reticulocyte 14, bilirubin 2.9, CR 1.5. Placed on IV fluids and admitted for further care 04/02: Hb 6.5. REFUSED TRANSFUSION THIS AM Hb 7 today. Patient tells me "back pain", then rubs eyes for 3.5 minutes, snores and does not respond, but opens eyes wide to sternal rub. Per nursing staff has been eating voraciously, and refusing nearly all medical therapies did not ask for pain medication until an hour ago had been off pain medication for over a day. Creatinine improved to 1.2, LFTs improved. D/W RN Vitals Vitals Vital Signs Date Time Temp Pulse Resp B/P (MAP) Pulse Ox O2 Delivery O2 Flow Rate FiO2 04/03/20 07:00 98.0 87 16 123/65 (84) 98 Room Air 98.0 04/02/20 20:00 2.0 Physical Exam General: Oriented X3, Cooperative, mild distress, Other (Drowsy) Lungs: Clear Abdomen: Normal bowel sounds, Soft, No tenderness, No hepatosplenomegaly, No masses Extremities: No clubbing, No cyanosis, No edema, Normal pulses, No tenderness/swelling Skin: No rashes, No breakdown, No significant lesion Labs LABS Laboratory Tests Test 04/02/20 11:41 04/03/20 04:07 Glucose (Fingerstick) 118 mg/dL (70-99) White Blood Count 10.2 x10^3/uL (4.0-11.0) Red Blood Count 1.90 x10^6/uL (4.30-5.70) Hemoglobin 7.0 g/dL (13.0-17.5) Hematocrit 19.1 % (39.0-53.0) Mean Corpuscular Volume 101 fL (79-100) Mean Corpuscular Hemoglobin 37 pg (25-35) Mean Corpuscular Hemoglobin Concent 37 g/dL (31-37) Red Cell Distribution Width 24.7 % (11.5-14.5) Platelet Count 341 x10^3/uL (140-400) Neutrophils (%) (Auto) 45 % (31-73) Lymphocytes (%) (Auto) 36 % (24-48) Monocytes (%) (Auto) 13 % (0-9) Eosinophils (%) (Auto) 4 % (0-3) Basophils (%) (Auto) 2 % (0-3) Neutrophils # (Auto) 4.5 x10^3/uL (1.8-7.7) Lymphocytes # (Auto) 3.7 x10^3/uL (1.0-4.8) Monocytes # (Auto) 1.4 x10^3/uL (0.0-1.1) Eosinophils # (Auto) 0.4 x10^3/uL (0.0-0.7) Basophils # (Auto) 0.2 x10^3/uL (0.0-0.2) Sodium Level 139 mmol/L (136-145) Potassium Level 4.9 mmol/L (3.5-5.1) Chloride Level 106 mmol/L (98-107) Carbon Dioxide Level 25 mmol/L (21-32) Anion Gap 8 (6-14) Blood Urea Nitrogen 18 mg/dL (8-26) Creatinine 1.2 mg/dL (0.7-1.3) Estimated GFR (Cockcroft-Gault) 87.2 BUN/Creatinine Ratio 15 (6-20) Glucose Level 86 mg/dL (70-99) Calcium Level 8.3 mg/dL (8.5-10.1) Total Bilirubin 2.1 mg/dL (0.2-1.0) Aspartate Amino Transf (AST/SGOT) 39 U/L (15-37) Alanine Aminotransferase (ALT/SGPT) 23 U/L (16-63) Alkaline Phosphatase 52 U/L (46-116) Total Protein 6.3 g/dL (6.4-8.2) Albumin 3.4 g/dL (3.4-5.0) Albumin/Globulin Ratio 1.2 (1.0-1.7) Assessment and Plan Assessmemt and Plan Problems Medical Problems: (1) Acute narcotic intoxication Status: Acute Comment Review of Relevant I have reviewed the following items amos (where applicable) has been applied. Labs Laboratory Tests Test 04/01/20 17:44 04/02/20 01:55 04/02/20 11:41 04/03/20 04:07 White Blood Count 10.8 x10^3/uL (4.0-11.0) 8.6 x10^3/uL (4.0-11.0) 10.2 x10^3/uL (4.0-11.0) Red Blood Count 1.92 x10^6/uL (4.30-5.70) 1.75 x10^6/uL (4.30-5.70) 1.90 x10^6/uL (4.30-5.70) Hemoglobin 7.0 g/dL (13.0-17.5) 6.5 g/dL (13.0-17.5) 7.0 g/dL (13.0-17.5) Hematocrit 19.1 % (39.0-53.0) 17.7 % (39.0-53.0) 19.1 % (39.0-53.0) Mean Corpuscular Volume 100 fL (79-100) 101 fL (79-100) 101 fL (79-100) Mean Corpuscular Hemoglobin 36 pg (25-35) 37 pg (25-35) 37 pg (25-35) Mean Corpuscular Hemoglobin Concent 36 g/dL (31-37) 37 g/dL (31-37) 37 g/dL (31-37) Red Cell Distribution Width 24.3 % (11.5-14.5) 24.8 % (11.5-14.5) 24.7 % (11.5-14.5) Platelet Count 327 x10^3/uL (140-400) 298 x10^3/uL (140-400) 341 x10^3/uL (140-400) Neutrophils (%) (Auto) 52 % (31-73) 46 % (31-73) 45 % (31-73) Lymphocytes (%) (Auto) 27 % (24-48) 31 % (24-48) 36 % (24-48) Monocytes (%) (Auto) 14 % (0-9) 16 % (0-9) 13 % (0-9) Eosinophils (%) (Auto) 4 % (0-3) 4 % (0-3) 4 % (0-3) Basophils (%) (Auto) 3 % (0-3) 2 % (0-3) 2 % (0-3) Neutrophils # (Auto) 5.7 x10^3/uL (1.8-7.7) 4.0 x10^3/uL (1.8-7.7) 4.5 x10^3/uL (1.8-7.7) Lymphocytes # (Auto) 2.9 x10^3/uL (1.0-4.8) 2.7 x10^3/uL (1.0-4.8) 3.7 x10^3/uL (1.0-4.8) Monocytes # (Auto) 1.5 x10^3/uL (0.0-1.1) 1.4 x10^3/uL (0.0-1.1) 1.4 x10^3/uL (0.0-1.1) Eosinophils # (Auto) 0.4 x10^3/uL (0.0-0.7) 0.4 x10^3/uL (0.0-0.7) 0.4 x10^3/uL (0.0-0.7) Basophils # (Auto) 0.3 x10^3/uL (0.0-0.2) 0.2 x10^3/uL (0.0-0.2) 0.2 x10^3/uL (0.0-0.2) Segmented Neutrophils % 55 % (35-66) Band Neutrophils % 1 % (0-9) Lymphocytes % 29 % (24-48) Monocytes % 11 % (0-10) Eosinophils % 4 % (0-5) Nucleated Red Blood Cells 5 Platelet Estimate Adequate (ADEQUATE) Polychromasia Mod Anisocytosis Mod Sickle Cells Few Target Cells Few Absolute Reticulocyte Count 0.272 x10^6/uL (0.020-0.120) 0.262 x10^6/uL (0.020-0.120) Percent Reticulocyte Count 14.2 % (0.5-2.3) 15.0 % (0.5-2.3) Immature Reticulocyte Fraction 0.73 (0.20-0.60) 0.77 (0.20-0.60) Sodium Level 141 mmol/L (136-145) 144 mmol/L (136-145) 139 mmol/L (136-145) Potassium Level 5.1 mmol/L (3.5-5.1) 4.7 mmol/L (3.5-5.1) 4.9 mmol/L (3.5-5.1) Chloride Level 109 mmol/L (98-107) 110 mmol/L (98-107) 106 mmol/L (98-107) Carbon Dioxide Level 25 mmol/L (21-32) 25 mmol/L (21-32) 25 mmol/L (21-32) Anion Gap 7 (6-14) 9 (6-14) 8 (6-14) Blood Urea Nitrogen 23 mg/dL (8-26) 20 mg/dL (8-26) 18 mg/dL (8-26) Creatinine 1.5 mg/dL (0.7-1.3) 1.4 mg/dL (0.7-1.3) 1.2 mg/dL (0.7-1.3) Estimated GFR (Cockcroft-Gault) 67.4 73.0 87.2 BUN/Creatinine Ratio 15 (6-20) 14 (6-20) 15 (6-20) Glucose Level 89 mg/dL (70-99) 95 mg/dL (70-99) 86 mg/dL (70-99) Calcium Level 8.3 mg/dL (8.5-10.1) 8.2 mg/dL (8.5-10.1) 8.3 mg/dL (8.5-10.1) Total Bilirubin 2.9 mg/dL (0.2-1.0) 2.3 mg/dL (0.2-1.0) 2.1 mg/dL (0.2-1.0) Aspartate Amino Transf (AST/SGOT) 55 U/L (15-37) 41 U/L (15-37) 39 U/L (15-37) Alanine Aminotransferase (ALT/SGPT) 21 U/L (16-63) 21 U/L (16-63) 23 U/L (16-63) Alkaline Phosphatase 55 U/L (46-116) 52 U/L (46-116) 52 U/L (46-116) Total Protein 7.2 g/dL (6.4-8.2) 6.8 g/dL (6.4-8.2) 6.3 g/dL (6.4-8.2) Albumin 4.1 g/dL (3.4-5.0) 3.6 g/dL (3.4-5.0) 3.4 g/dL (3.4-5.0) Albumin/Globulin Ratio 1.3 (1.0-1.7) 1.1 (1.0-1.7) 1.2 (1.0-1.7) Glucose (Fingerstick) 118 mg/dL (70-99) Laboratory Tests Test 04/02/20 11:41 04/03/20 04:07 Glucose (Fingerstick) 118 mg/dL (70-99) White Blood Count 10.2 x10^3/uL (4.0-11.0) Red Blood Count 1.90 x10^6/uL (4.30-5.70) Hemoglobin 7.0 g/dL (13.0-17.5) Hematocrit 19.1 % (39.0-53.0) Mean Corpuscular Volume 101 fL (79-100) Mean Corpuscular Hemoglobin 37 pg (25-35) Mean Corpuscular Hemoglobin Concent 37 g/dL (31-37) Red Cell Distribution Width 24.7 % (11.5-14.5) Platelet Count 341 x10^3/uL (140-400) Neutrophils (%) (Auto) 45 % (31-73) Lymphocytes (%) (Auto) 36 % (24-48) Monocytes (%) (Auto) 13 % (0-9) Eosinophils (%) (Auto) 4 % (0-3) Basophils (%) (Auto) 2 % (0-3) Neutrophils # (Auto) 4.5 x10^3/uL (1.8-7.7) Lymphocytes # (Auto) 3.7 x10^3/uL (1.0-4.8) Monocytes # (Auto) 1.4 x10^3/uL (0.0-1.1) Eosinophils # (Auto) 0.4 x10^3/uL (0.0-0.7) Basophils # (Auto) 0.2 x10^3/uL (0.0-0.2) Sodium Level 139 mmol/L (136-145) Potassium Level 4.9 mmol/L (3.5-5.1) Chloride Level 106 mmol/L (98-107) Carbon Dioxide Level 25 mmol/L (21-32) Anion Gap 8 (6-14) Blood Urea Nitrogen 18 mg/dL (8-26) Creatinine 1.2 mg/dL (0.7-1.3) Estimated GFR (Cockcroft-Gault) 87.2 BUN/Creatinine Ratio 15 (6-20) Glucose Level 86 mg/dL (70-99) Calcium Level 8.3 mg/dL (8.5-10.1) Total Bilirubin 2.1 mg/dL (0.2-1.0) Aspartate Amino Transf (AST/SGOT) 39 U/L (15-37) Alanine Aminotransferase (ALT/SGPT) 23 U/L (16-63) Alkaline Phosphatase 52 U/L (46-116) Total Protein 6.3 g/dL (6.4-8.2) Albumin 3.4 g/dL (3.4-5.0) Albumin/Globulin Ratio 1.2 (1.0-1.7) Medications Current Medications Sodium Chloride 1,000 ml @ 0 mls/hr 1X ONCE IV Last administered on 04/01/20at 17:48; Start 04/01/20 at 17:15; Stop 04/01/20 at 17:16; Status DC Naloxone HCl (Narcan) 0.4 mg 1X ONCE IV Last administered on 04/01/20at 19:19; Start 04/01/20 at 19:00; Stop 04/01/20 at 19:01; Status DC Ferrous Sulfate (Feosol) 325 mg DAILY PO ; Start 04/02/20 at 09:00 Pantoprazole Sodium (Protonix) 40 mg DAILYAC PO ; Start 04/02/20 at 07:30 Sodium Chloride 1,000 ml @ 150 mls/hr Q6H40M IV Last administered on 04/02/20at 23:00; Start 04/01/20 at 21:00; Stop 04/03/20 at 00:33; Status DC Ondansetron HCl (Zofran) 4 mg PRN Q4HRS PRN IV NAUSEA/VOMITING 1ST CHOICE; Start 04/01/20 at 20:30 Acetaminophen (Tylenol) 650 mg PRN Q4HRS PRN PO TEMP OVER 100.4F OR MILD PAIN; Start 04/01/20 at 20:30 Hydromorphone HCl (Dilaudid) 0.5 mg PRN Q2HRS PRN IV SEVERE PAIN 7-10 Last administered on 04/02/20at 17:13; Start 04/01/20 at 20:30 Enoxaparin Sodium (Lovenox 40mg Syringe) 40 mg Q24H SQ ; Start 04/01/20 at 21:00 Oxycodone HCl (Roxicodone) 5 mg PRN Q6HRS PRN PO MODERATE PAIN 4-6; Start 04/01/20 at 20:30 Sodium Chloride 1,000 ml @ 150 mls/hr Q6H40M IV Last administered on 04/03/20at 05:42; Start 04/02/20 at 23:00 Active Scripts Active Protonix (Pantoprazole Sodium) 20 Mg Tablet.dr 1 Tab PO DAILY Ferrous Sulfate 325 Mg Tablet 1 Tab PO DAILY Ms Contin (Morphine Sulfate) 30 Mg Tablet.er 1 Tab PO BID Hydrea (Hydroxyurea) 500 Mg Capsule 500 Mg PO DAILY Oxycodone Hcl 30 Mg Tablet 30 Mg PO PRN Q6HRS PRN Folic Acid 1 Mg Tablet 1 Mg PO DAILY Vitals/I & O Vital Sign - Last 24 Hours 04/02/20 04/02/20 04/02/20 04/02/20 10:46 15:00 17:13 19:07 Temp 98.3 98.2 98.3 98.3 98.2 98.3 Pulse 66 68 77 Resp 16 17 16 B/P (MAP) 111/53 (72) 114/57 (76) 119/70 (86) Pulse Ox 92 92 97 O2 Delivery Room Air Room Air Room Air Nasal Cannula O2 Flow Rate 2.0 2.0 04/02/20 04/02/20 04/03/20 04/03/20 20:00 22:48 02:52 07:00 Temp 98.0 98.3 98.0 98.0 98.3 98.0 Pulse 60 69 87 Resp 16 16 16 B/P (MAP) 123/76 (92) 107/69 (82) 123/65 (84) Pulse Ox 97 93 98 O2 Delivery Nasal Cannula Room Air Room Air Room Air O2 Flow Rate 2.0 Intake and Output 04/02/20 04/02/20 04/03/20 15:00 23:00 07:00 Intake Total 480 ml 540 ml Balance 480 ml 540 ml JOSUÉ CARRENO MD April 03, 2020 09:18
[2020-04-03 11:00] VITALS: BP 125/60
[2020-04-03 15:00] VITALS: BP 120/66
--- NOTE | 2020-04-03 16:02 | NUR ---
SS following up with discharge planning. SS reviewed pt chart and discussed with pt RN. Pt is currently on room air. Discharge plan is to home when ready. SS will continue to follow for discharge planning.
[2020-04-03 19:59] VITALS: BP 116/59
[2020-04-03] MEDS: ENOXAPARIN 40 MG/0.4 ML SYRINGE. SQ SCH (21:00)
[2020-04-03] MEDS: oxyCODONE IR 5 MG TABLET PO PRN (22:17)
[2020-04-03 23:39] VITALS: BP 115/61
[2020-04-04] MEDS: IV NORMAL SALINE 1000ML BAG 1,000 ML IV SCH ×4 (01:32→21:11)
[2020-04-04 03:34] VITALS: BP 121/69
[2020-04-04 07:00] VITALS: BP 123/68
[2020-04-04] MEDS: PANTOPRAZOLE 40 MG TABLET.DR. PO SCH (07:18)
--- NOTE | 2020-04-04 08:18 | PDOC ---
PROGRESS NOTES Chief Complaint Chief Complaint A/P: Acute anemia - 2/2 SCD crisis, improved. No Dilaudid given she is not awakening. Narcan was necessary earlier in the shift. Will type and screen, transfuse if Hb drops below 7 tomorrow morning. Acute narcotic intoxication - h/o heroin abuse listed on her chart. Will try to avoid excessive opioids, but they are indicated for SCD pain crisis Sickle cell anemia - as above Elevated bilirubin - 2/2 SCD, will monitor MICHEAL - vasomotor nephropathy from SCD crisis, will hydrate Hyperkalemia - kayexelate, hydration FEN - 150cc/hr NSS, general diet PPX - lovenox FULL CODE DIspo - inpatient History of Present Illness History of Present Illness Ms Krishnan is a 29 yo M (trans female) w/ PMHx sickle cell disease who presents to the emergency room complaining of sickle cell pain crisis. Upon arrival to the emergency room patient is lethargic and became hypoxic when sleeping. Patient admits to taking Dilaudid 1 hour prior to arrival. Found hypoxic into the mid 80s, placed on nasal cannula. Hb 7, reticulocyte 14, bilirubin 2.9, CR 1.5. Placed on IV fluids and admitted for further care 04/02: Hb 6.5. REFUSED TRANSFUSION THIS AM 04/03: Hb 7 today. Patient tells me "back pain", then rubs eyes for 3.5 minutes, snores and does not respond, but opens eyes wide to sternal rub. Per nursing staff has been eating voraciously, and refusing nearly all medical therapies did not ask for pain medication until an hour ago had been off pain medication for over a day. Creatinine improved to 1.2, LFTs improved. Only required 1 dose of p.o. oxycodone 5 mg over the past 18 hours. K5.8, CR 1.1, Hb 6.4. She refused opening eyes examined during examination despite request. She says he took my IV pain medication away and needed IV pain medication for her back. I am Mike and I am going to burn down off [place]. When asked if she has plans to hurt herself or others specifically she says I am just cannot burn the whole world down. When offered blood transfusion she says blood transfusions kill people I will never have a blood transfusion. Refuses answer when asked if she has had a blood transfusion previously. 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 Plan: Kayexalate, reinsert IV and continue IV fluids. No further IV pain medications. D/W RN, not safe to discharge with K 5.8. Vitals Vitals Vital Signs Date Time Temp Pulse Resp B/P (MAP) Pulse Ox O2 Delivery O2 Flow Rate FiO2 04/04/20 07:00 97.7 83 18 123/68 (86) 91 Room Air 97.7 04/03/20 23:17 2.0 Physical Exam General: Oriented X3, Cooperative, mild distress, Other (Drowsy) Lungs: Clear Abdomen: Normal bowel sounds, Soft, No tenderness, No hepatosplenomegaly, No masses Extremities: No clubbing, No cyanosis, No edema, Normal pulses, No tenderness /swelling Skin: No rashes, No breakdown, No significant lesion Assessment and Plan Assessmemt and Plan Problems Medical Problems: (1) Acute narcotic intoxication Status: Acute Comment Review of Relevant I have reviewed the following items amos (where applicable) has been applied. Labs Laboratory Tests Test 04/02/20 11:41 04/03/20 04:07 Glucose (Fingerstick) 118 mg/dL (70-99) White Blood Count 10.2 x10^3/uL (4.0-11.0) Red Blood Count 1.90 x10^6/uL (4.30-5.70) Hemoglobin 7.0 g/dL (13.0-17.5) Hematocrit 19.1 % (39.0-53.0) Mean Corpuscular Volume 101 fL (79-100) Mean Corpuscular Hemoglobin 37 pg (25-35) Mean Corpuscular Hemoglobin Concent 37 g/dL (31-37) Red Cell Distribution Width 24.7 % (11.5-14.5) Platelet Count 341 x10^3/uL (140-400) Neutrophils (%) (Auto) 45 % (31-73) Lymphocytes (%) (Auto) 36 % (24-48) Monocytes (%) (Auto) 13 % (0-9) Eosinophils (%) (Auto) 4 % (0-3) Basophils (%) (Auto) 2 % (0-3) Neutrophils # (Auto) 4.5 x10^3/uL (1.8-7.7) Lymphocytes # (Auto) 3.7 x10^3/uL (1.0-4.8) Monocytes # (Auto) 1.4 x10^3/uL (0.0-1.1) Eosinophils # (Auto) 0.4 x10^3/uL (0.0-0.7) Basophils # (Auto) 0.2 x10^3/uL (0.0-0.2) Sodium Level 139 mmol/L (136-145) Potassium Level 4.9 mmol/L (3.5-5.1) Chloride Level 106 mmol/L (98-107) Carbon Dioxide Level 25 mmol/L (21-32) Anion Gap 8 (6-14) Blood Urea Nitrogen 18 mg/dL (8-26) Creatinine 1.2 mg/dL (0.7-1.3) Estimated GFR (Cockcroft-Gault) 87.2 BUN/Creatinine Ratio 15 (6-20) Glucose Level 86 mg/dL (70-99) Calcium Level 8.3 mg/dL (8.5-10.1) Total Bilirubin 2.1 mg/dL (0.2-1.0) Aspartate Amino Transf (AST/SGOT) 39 U/L (15-37) Alanine Aminotransferase (ALT/SGPT) 23 U/L (16-63) Alkaline Phosphatase 52 U/L (46-116) Total Protein 6.3 g/dL (6.4-8.2) Albumin 3.4 g/dL (3.4-5.0) Albumin/Globulin Ratio 1.2 (1.0-1.7) Medications Current Medications Sodium Chloride 1,000 ml @ 0 mls/hr 1X ONCE IV Last administered on 04/01/20at 17:48; Start 04/01/20 at 17:15; Stop 04/01/20 at 17:16; Status DC Naloxone HCl (Narcan) 0.4 mg 1X ONCE IV Last administered on 04/01/20at 19:19; Start 04/01/20 at 19:00; Stop 04/01/20 at 19:01; Status DC Ferrous Sulfate (Feosol) 325 mg DAILY PO ; Start 04/02/20 at 09:00 Pantoprazole Sodium (Protonix) 40 mg DAILYAC PO ; Start 04/02/20 at 07:30 Sodium Chloride 1,000 ml @ 150 mls/hr Q6H40M IV Last administered on 04/02/20at 23:00; Start 04/01/20 at 21:00; Stop 04/03/20 at 00:33; Status DC Ondansetron HCl (Zofran) 4 mg PRN Q4HRS PRN IV NAUSEA/VOMITING 1ST CHOICE; Start 04/01/20 at 20:30 Acetaminophen (Tylenol) 650 mg PRN Q4HRS PRN PO TEMP OVER 100.4F OR MILD PAIN; Start 04/01/20 at 20:30 Hydromorphone HCl (Dilaudid) 0.5 mg PRN Q2HRS PRN IV SEVERE PAIN 7-10 Last administered on 04/02/20at 17:13; Start 04/01/20 at 20:30; Stop 04/03/20 at 13:15; Status DC Enoxaparin Sodium (Lovenox 40mg Syringe) 40 mg Q24H SQ ; Start 04/01/20 at 21:00 Oxycodone HCl (Roxicodone) 5 mg PRN Q6HRS PRN PO MODERATE PAIN 4-6 Last administered on 04/03/20at 22:17; Start 04/01/20 at 20:30 Sodium Chloride 1,000 ml @ 150 mls/hr Q6H40M IV Last administered on 04/04/20at 01:32; Start 04/02/20 at 23:00 Active Scripts Active Protonix (Pantoprazole Sodium) 20 Mg Tablet.dr 1 Tab PO DAILY Ferrous Sulfate 325 Mg Tablet 1 Tab PO DAILY Ms Contin (Morphine Sulfate) 30 Mg Tablet.er 1 Tab PO BID Hydrea (Hydroxyurea) 500 Mg Capsule 500 Mg PO DAILY Oxycodone Hcl 30 Mg Tablet 30 Mg PO PRN Q6HRS PRN Folic Acid 1 Mg Tablet 1 Mg PO DAILY Vitals/I & O Vital Sign - Last 24 Hours 04/03/20 04/03/20 04/03/20 04/03/20 08:29 11:00 15:00 19:59 Temp 97.9 98.3 98.6 97.9 98.3 98.6 Pulse 86 78 76 Resp 18 16 16 B/P (MAP) 125/60 (81) 120/66 (84) 116/59 (78) Pulse Ox 97 97 96 O2 Delivery Nasal Cannula Room Air Room Air Room Air O2 Flow Rate 2.0 04/03/20 04/03/20 04/03/20 04/03/20 20:00 22:17 23:17 23:39 Temp 98.8 98.8 Pulse 79 Resp 18 18 18 B/P (MAP) 115/61 (79) Pulse Ox 96 96 96 O2 Delivery Nasal Cannula Nasal Cannula Nasal Cannula Room Air O2 Flow Rate 2.0 2.0 2.0 04/04/20 04/04/20 03:34 07:00 Temp 98.1 97.7 98.1 97.7 Pulse 88 83 Resp 16 18 B/P (MAP) 121/69 (86) 123/68 (86) Pulse Ox 97 91 O2 Delivery Room Air Room Air Intake and Output 04/03/20 04/03/20 04/04/20 15:00 23:00 07:00 Intake Total 2630 ml Balance 2630 ml JOSUÉ CARRENO MD April 04, 2020 08:18
[2020-04-04] MEDS: FERROUS SULFATE 325 MG TABLET. PO SCH (09:00)
--- NOTE | 2020-04-04 09:00 | NUR ---
IV pulled out during night. Pt refuses to have IV to be restarted. Will let Dr. Romano know.
[2020-04-04 09:36] LABS: BASO # 0.1 x10^3/uL (0.0-0.2); BASO % 1 % (0-3); EOS # 0.5 x10^3/uL (0.0-0.7); EOS % 4 % (0-3); LYMPH # 1.9 x10^3/uL (1.0-4.8); LYMPH % 18 % (24-48); MEAN CORPUSCULAR HEMOGLOBIN 36 pg (25-35); MEAN CORPUSCULAR HGB CONC 37 g/dL (31-37); MEAN CORPUSCULAR VOLUME 97 fL (79-100); MONO # 1.4 x10^3/uL (0.0-1.1); MONO % 13 % (0-9); NEUT % 64 % (31-73); PLATELET COUNT 308 x10^3/uL (140-400); RED BLOOD COUNT 1.81 x10^6/uL (4.30-5.70); RED CELL DISTRIBUTION WIDTH 23.4 % (11.5-14.5); WHITE BLOOD COUNT 10.9 x10^3/uL (4.0-11.0)
[2020-04-04 09:40] LABS: HEMATOCRIT 17.6 % (39.0-53.0); HEMOGLOBIN 6.4 g/dL (13.0-17.5)
[2020-04-04 10:04] LABS: ALBUMIN 3.4 g/dL (3.4-5.0); ALBUMIN/GLOBULIN RATIO 1.1 (1.0-1.7); CALCIUM 8.6 mg/dL (8.5-10.1); CREATININE 1.1 mg/dL (0.7-1.3); GFR 96.4; TOTAL BILIRUBIN 1.9 mg/dL (0.2-1.0); TOTAL PROTEIN 6.5 g/dL (6.4-8.2)
[2020-04-04 10:16] LABS: POTASSIUM 5.8 mmol/L (3.5-5.1)
[2020-04-04 10:52] VITALS: BP 120/64
--- NOTE | 2020-04-04 11:00 | NUR ---
In bed with eyes closed. Only time pt initiates in conversation when asking for food. Other sousa refuses to respond. Pt will go to bathroom or comes out to the hallway and gets into refrigerator. But most of the time in bed with eyes closed.
--- NOTE | 2020-04-04 11:43 | NUR ---
SS following up with discharge planning. SS reviewed pt chart and discussed with pt RN. Pt is currently on room air. Hemoglobin is 6.4. Per RN, pt needing blood today. SS will continue to follow for discharge planning.
[2020-04-04] MEDS ORDERED: SODIUM POLYSTYRENE SULFON/SORB 15 GM/60 ML ORAL.SUSP PO ONE (13:15)
[2020-04-04 15:07] VITALS: BP 126/72
[2020-04-04] MEDS ORDERED: HALOPERIDOL 5 MG TABLET. PO PRN (17:45)
[2020-04-04] MEDS: oxyCODONE IR 5 MG TABLET PO PRN (17:52)
--- NOTE | 2020-04-04 18:20 | PDOC1 ---
History & Psych Evaluation Date of Admission: Date of Admission DATE: 04/04/20 TIME: 18:03 Source: Source: Caregiver, Chart review, Patient Identification: Identification He is a 29-year-old trans-male who goes by a female pronoun. Chief Complaint: Chief Complaint Psychosis, noncompliant with treatment plan, restlessness History of Present Illness: HPI: 29-year-old trans-male with sickle cell disease admitted with sickle cell crisis and acute narcotic intoxication secondary to Dilaudid. Received Narcan for reversal of respiratory depression. According to the information, demonstrated psychotic behavior, talking about God. Nursing staff reported that, patient is largely noncompliant, intermittently interactive demanding food. Mostly quiet refusing for medications, however excepting some. When seen, he appears restless refusing to speak out his full name or how he goes by. Complaining of back pain and asking for pain medications. Constantly, ruminating " does it matter" " my back is hurting". Resistant to answer questions, appears to be having hard time focusing on task, at times with staring spells. Mood is dysphoric affect is dysthymic. Admits, admissions in OSH previously. Stating " I do not want to go there". He preferred to get mute and refused to respond further. Past Psychiatric History: Positive psychiatric history with admissions in OSH. Collateral information would help. Past Medical History: Please see medical chart for details. Admitted with acute narcotic intoxication. Family History: Family history of psychiatric illness is not available at this point. Social History: Social History: Reporting, he lives by himself. History of heroin abuse. Current Medications: Current Medications Current Medications Medications (Trade) Dose Ordered Sig/Bianca Start Time Stop Time Status Last Admin Dose Admin Acetaminophen (Tylenol) 650 mg PRN Q4HRS PRN 04/01/20 20:30 Enoxaparin Sodium (Lovenox 40mg Syringe) 40 mg Q24H 04/01/20 21:00 Ferrous Sulfate (Feosol) 325 mg DAILY 04/02/20 09:00 Haloperidol (Haldol) 5 mg QHS PRN 04/04/20 17:45 Hydromorphone HCl (Dilaudid) 0.5 mg PRN Q2HRS PRN 04/01/20 20:30 04/03/20 13:15 DC 04/02/20 17:13 0.5 MG Lorazepam (Ativan) 1 mg PRN Q6HRS PRN 04/04/20 17:45 Naloxone HCl (Narcan) 0.4 mg 1X ONCE 04/01/20 19:00 04/01/20 19:01 DC 04/01/20 19:19 0.4 MG Ondansetron HCl (Zofran) 4 mg PRN Q4HRS PRN 04/01/20 20:30 Oxycodone HCl (Roxicodone) 5 mg PRN Q6HRS PRN 04/01/20 20:30 04/04/20 17:52 5 MG Pantoprazole Sodium (Protonix) 40 mg DAILYAC 04/02/20 07:30 Sodium Polystyrene Sulfonate (Kayexalate) 15 gm 1X ONCE 04/04/20 13:15 04/04/20 13:16 DC 04/04/20 13:51 15 GM Sodium Chloride 1,000 ml @ 150 mls/hr Q6H40M 04/02/20 23:00 04/04/20 01:32 150 MLS/HR Allergies: Allergies: Coded Allergies: shellfish derived (Verified Allergy, Intermediate, 04/02/20) Mental Status Examination: Mental Status Examination Trans-male, young, restless, Uncooperative, resistant to exploration Disoriented Speech is loud at times Thought processes disorganized Denies auditory or visual hallucinations. Denies suicidal or homicidal thoughts. Mood is dysphoric Affect is labile Insight is poor Impulse control is poor Judgment is poor Attention span and concentration poor Memory is impaired ROS: Psychiatric review of system is positive for psychosis, mood instability, and dysphoria. Physical Exam: Refer to Physician's note. POOL NURSE: No focal deficit MSK: No EPS, TDK, or abnormal involuntary movements Vitals: Vitals Vital Signs Date Time Temp Pulse Resp B/P (MAP) Pulse Ox O2 Delivery O2 Flow Rate FiO2 04/04/20 17:52 Room Air 04/04/20 15:07 98.7 98 18 126/72 (90) 92 2.0 98.7 Labs: Labs Laboratory Tests Test 04/03/20 04:07 04/04/20 08:45 White Blood Count 10.2 x10^3/uL (4.0-11.0) 10.9 x10^3/uL (4.0-11.0) Red Blood Count 1.90 x10^6/uL (4.30-5.70) 1.81 x10^6/uL (4.30-5.70) Hemoglobin 7.0 g/dL (13.0-17.5) 6.4 g/dL (13.0-17.5) Hematocrit 19.1 % (39.0-53.0) 17.6 % (39.0-53.0) Mean Corpuscular Volume 101 fL (79-100) 97 fL (79-100) Mean Corpuscular Hemoglobin 37 pg (25-35) 36 pg (25-35) Mean Corpuscular Hemoglobin Concent 37 g/dL (31-37) 37 g/dL (31-37) Red Cell Distribution Width 24.7 % (11.5-14.5) 23.4 % (11.5-14.5) Platelet Count 341 x10^3/uL (140-400) 308 x10^3/uL (140-400) Neutrophils (%) (Auto) 45 % (31-73) 64 % (31-73) Lymphocytes (%) (Auto) 36 % (24-48) 18 % (24-48) Monocytes (%) (Auto) 13 % (0-9) 13 % (0-9) Eosinophils (%) (Auto) 4 % (0-3) 4 % (0-3) Basophils (%) (Auto) 2 % (0-3) 1 % (0-3) Neutrophils # (Auto) 4.5 x10^3/uL (1.8-7.7) 7.0 x10^3/uL (1.8-7.7) Lymphocytes # (Auto) 3.7 x10^3/uL (1.0-4.8) 1.9 x10^3/uL (1.0-4.8) Monocytes # (Auto) 1.4 x10^3/uL (0.0-1.1) 1.4 x10^3/uL (0.0-1.1) Eosinophils # (Auto) 0.4 x10^3/uL (0.0-0.7) 0.5 x10^3/uL (0.0-0.7) Basophils # (Auto) 0.2 x10^3/uL (0.0-0.2) 0.1 x10^3/uL (0.0-0.2) Sodium Level 139 mmol/L (136-145) 137 mmol/L (136-145) Potassium Level 4.9 mmol/L (3.5-5.1) 5.8 mmol/L (3.5-5.1) Chloride Level 106 mmol/L (98-107) 106 mmol/L (98-107) Carbon Dioxide Level 25 mmol/L (21-32) 26 mmol/L (21-32) Anion Gap 8 (6-14) 5 (6-14) Blood Urea Nitrogen 18 mg/dL (8-26) 18 mg/dL (8-26) Creatinine 1.2 mg/dL (0.7-1.3) 1.1 mg/dL (0.7-1.3) Estimated GFR (Cockcroft-Gault) 87.2 96.4 BUN/Creatinine Ratio 15 (6-20) 16 (6-20) Glucose Level 86 mg/dL (70-99) 89 mg/dL (70-99) Calcium Level 8.3 mg/dL (8.5-10.1) 8.6 mg/dL (8.5-10.1) Total Bilirubin 2.1 mg/dL (0.2-1.0) 1.9 mg/dL (0.2-1.0) Aspartate Amino Transf (AST/SGOT) 39 U/L (15-37) 40 U/L (15-37) Alanine Aminotransferase (ALT/SGPT) 23 U/L (16-63) 22 U/L (16-63) Alkaline Phosphatase 52 U/L (46-116) 53 U/L (46-116) Total Protein 6.3 g/dL (6.4-8.2) 6.5 g/dL (6.4-8.2) Albumin 3.4 g/dL (3.4-5.0) 3.4 g/dL (3.4-5.0) Albumin/Globulin Ratio 1.2 (1.0-1.7) 1.1 (1.0-1.7) Laboratory Tests Test 04/04/20 08:45 White Blood Count 10.9 x10^3/uL (4.0-11.0) Red Blood Count 1.81 x10^6/uL (4.30-5.70) Hemoglobin 6.4 g/dL (13.0-17.5) Hematocrit 17.6 % (39.0-53.0) Mean Corpuscular Volume 97 fL (79-100) Mean Corpuscular Hemoglobin 36 pg (25-35) Mean Corpuscular Hemoglobin Concent 37 g/dL (31-37) Red Cell Distribution Width 23.4 % (11.5-14.5) Platelet Count 308 x10^3/uL (140-400) Neutrophils (%) (Auto) 64 % (31-73) Lymphocytes (%) (Auto) 18 % (24-48) Monocytes (%) (Auto) 13 % (0-9) Eosinophils (%) (Auto) 4 % (0-3) Basophils (%) (Auto) 1 % (0-3) Neutrophils # (Auto) 7.0 x10^3/uL (1.8-7.7) Lymphocytes # (Auto) 1.9 x10^3/uL (1.0-4.8) Monocytes # (Auto) 1.4 x10^3/uL (0.0-1.1) Eosinophils # (Auto) 0.5 x10^3/uL (0.0-0.7) Basophils # (Auto) 0.1 x10^3/uL (0.0-0.2) Sodium Level 137 mmol/L (136-145) Potassium Level 5.8 mmol/L (3.5-5.1) Chloride Level 106 mmol/L (98-107) Carbon Dioxide Level 26 mmol/L (21-32) Anion Gap 5 (6-14) Blood Urea Nitrogen 18 mg/dL (8-26) Creatinine 1.1 mg/dL (0.7-1.3) Estimated GFR (Cockcroft-Gault) 96.4 BUN/Creatinine Ratio 16 (6-20) Glucose Level 89 mg/dL (70-99) Calcium Level 8.6 mg/dL (8.5-10.1) Total Bilirubin 1.9 mg/dL (0.2-1.0) Aspartate Amino Transf (AST/SGOT) 40 U/L (15-37) Alanine Aminotransferase (ALT/SGPT) 22 U/L (16-63) Alkaline Phosphatase 53 U/L (46-116) Total Protein 6.5 g/dL (6.4-8.2) Albumin 3.4 g/dL (3.4-5.0) Albumin/Globulin Ratio 1.1 (1.0-1.7) Diagnosis: Diagnosis: 1psychosis, unspecified. Rule out psychosis secondary to general medical condition Rule out primary psychotic disorder 2mood disorder unspecified 3anxiety disorder unspecified 4encephalopathy Assessment: Young trans-male admitted with acute narcotic intoxication and sickle cell crisis, struggling with mood instability and psychosis. Presently, collateral information is limited however, psychosis is either related to sickle cell crisis or primary psychotic disorder evident from previous psychiatric history. He will get benefit with Haldol and Ativan to slow down his brain to improve focus and psychosis. Plan: 1give Ativan 1 mg stat to calm him down, then 1 mg twice daily as needed for agitation/anxiety. 2Haldol 5 mg nightly for psychosis. 3please get collateral information including living circumstances. 4monitor for symptoms, excessive sedation, respiratory depression. In case of excessive sedation avoid giving sedatives or hypnotics. 5psychiatry service will continue to follow along. Thank you for involving inpatient care. DARION HEARN MD April 04, 2020 18:20
[2020-04-04 19:28] VITALS: BP 113/90
--- NOTE | 2020-04-04 20:00 | NUR ---
Spoke to pt. about needing blood products and the reasoning behind it. Pt. still will not agree to getting blood. Pt. agreed to getting IV placed.
[2020-04-04] MEDS: ENOXAPARIN 40 MG/0.4 ML SYRINGE. SQ SCH (21:00)
[2020-04-04] MEDS: LORazepam 1 MG TABLET PO PRN (21:07)
[2020-04-04 23:15] VITALS: BP 128/57
[2020-04-05] MEDS: oxyCODONE IR 5 MG TABLET PO PRN ×4 (00:01→23:45)
[2020-04-05 02:14] VITALS: BP 119/83
[2020-04-05] MEDS: IV NORMAL SALINE 1000ML BAG 1,000 ML IV SCH ×4 (05:58→23:46)
[2020-04-05] MEDS: PANTOPRAZOLE 40 MG TABLET.DR. PO SCH (06:00)
[2020-04-05 07:10] LABS: CALCIUM 8.5 mg/dL (8.5-10.1); CREATININE 1.1 mg/dL (0.7-1.3); GFR 96.4; POTASSIUM 5.4 mmol/L (3.5-5.1)
[2020-04-05 07:38] LABS: BASO # 0.3 x10^3/uL (0.0-0.2); BASO % 3 % (0-3); EOS # 0.5 x10^3/uL (0.0-0.7); EOS % 5 % (0-3); LYMPH # 3.3 x10^3/uL (1.0-4.8); LYMPH % 30 % (24-48); MEAN CORPUSCULAR HEMOGLOBIN 36 pg (25-35); MEAN CORPUSCULAR HGB CONC 37 g/dL (31-37); MEAN CORPUSCULAR VOLUME 96 fL (79-100); MONO # 1.5 x10^3/uL (0.0-1.1); MONO % 13 % (0-9); NEUT # 5.7 x10^3/uL (1.8-7.7); NEUT % 50 % (31-73); PLATELET COUNT 300 x10^3/uL (140-400); RED BLOOD COUNT 1.75 x10^6/uL (4.30-5.70); RED CELL DISTRIBUTION WIDTH 22.9 % (11.5-14.5); WHITE BLOOD COUNT 11.3 x10^3/uL (4.0-11.0)
[2020-04-05 07:52] LABS: HEMATOCRIT 16.9 % (39.0-53.0); HEMOGLOBIN 6.3 g/dL (13.0-17.5)
[2020-04-05 07:59] VITALS: BP 107/48
--- NOTE | 2020-04-05 08:23 | PDOC ---
PROGRESS NOTES Chief Complaint Chief Complaint A/P: Acute anemia - 2/2 SCD crisis, improved. No Dilaudid given she is not awakening. Narcan was necessary earlier in the shift. Will type and screen, transfuse if Hb drops below 7 tomorrow morning. Acute narcotic intoxication - h/o heroin abuse listed on her chart. Will try to avoid excessive opioids, but they are indicated for SCD pain crisis Sickle cell anemia - as above Elevated bilirubin - 2/2 SCD, will monitor MICHEAL - vasomotor nephropathy from SCD crisis, will hydrate Hyperkalemia - kayexelate, hydration FEN - 150cc/hr NSS, general diet PPX - lovenox FULL CODE DIspo - inpatient History of Present Illness History of Present Illness Ms Krishnan is a 29 yo M (trans female) w/ PMHx sickle cell disease who presents to the emergency room complaining of sickle cell pain crisis. Upon arrival to the emergency room patient is lethargic and became hypoxic when sleeping. Patient admits to taking Dilaudid 1 hour prior to arrival. Found hypoxic into the mid 80s, placed on nasal cannula. Hb 7, reticulocyte 14, bilirubin 2.9, CR 1.5. Placed on IV fluids and admitted for further care 04/02: Hb 6.5. REFUSED TRANSFUSION THIS AM 04/03: Hb 7 today. Patient tells me "back pain", then rubs eyes for 3.5 minutes, snores and does not respond, but opens eyes wide to sternal rub. Per nursing staff has been eating voraciously, and refusing nearly all medical therapies did not ask for pain medication until an hour ago had been off pain medication for over a day. Creatinine improved to 1.2, LFTs improved. 04/04: Only required 1 dose of p.o. oxycodone 5 mg over the past 18 hours. K5.8, CR 1.1, Hb 6.4. She refused opening eyes examined during examination despite request. She says he took my IV pain medication away and needed IV pain medication for her back. "I am Mike and I am going to burn down off [place]". When asked if she has plans to hurt herself or others specifically she says "I am just cannot burn the whole world down while here". When offered blood transfusion she says blood transfusions kill people I will never have a b lood transfusion. Refuses answer when asked if she has had a blood transfusion previously. 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 Hb 6.3, K5.4. D/W psychiatric social work liaison yesterday about behavioral issues, found that patient has been institutionalized at OSH twice in the past few years for violent and psychotic behavior and has been diagnosed with schizophrenia. Not on meds. Continues to refuse blood transfusion, requesting IV pain medication. Today refuses to speak with me keeps eyes closed. After leave the room walks on the room goes to the refrigerator and takes all of the putting bumps on the shoulder and walks back in the room. Plan: Kayexalate, reinsert IV and continue IV fluids. No further IV pain medications. D/W RN, not safe to discharge with K elevated and actively psychotic Appreciate psychiatric assistance with her care Vitals Vitals Vital Signs Date Time Temp Pulse Resp B/P (MAP) Pulse Ox O2 Delivery O2 Flow Rate FiO2 04/05/20 03:05 Nasal Cannula 2.0 04/05/20 02:14 98.1 85 16 119/83 (95) 91 98.1 Physical Exam General: Oriented X3, Cooperative, mild distress, Other (Drowsy) Lungs: Clear Abdomen: Normal bowel sounds, Soft, No tenderness, No hepatosplenomegaly, No masses Extremities: No clubbing, No cyanosis, No edema, Normal pulses, No tenderness/swelling Skin: No rashes, No breakdown, No significant lesion Labs LABS Laboratory Tests Test 04/04/20 08:45 04/05/20 06:30 White Blood Count 10.9 x10^3/uL (4.0-11.0) 11.3 x10^3/uL (4.0-11.0) Red Blood Count 1.81 x10^6/uL (4.30-5.70) 1.75 x10^6/uL (4.30-5.70) Hemoglobin 6.4 g/dL (13.0-17.5) 6.3 g/dL (13.0-17.5) Hematocrit 17.6 % (39.0-53.0) 16.9 % (39.0-53.0) Mean Corpuscular Volume 97 fL (79-100) 96 fL (79-100) Mean Corpuscular Hemoglobin 36 pg (25-35) 36 pg (25-35) Mean Corpuscular Hemoglobin Concent 37 g/dL (31-37) 37 g/dL (31-37) Red Cell Distribution Width 23.4 % (11.5-14.5) 22.9 % (11.5-14.5) Platelet Count 308 x10^3/uL (140-400) 300 x10^3/uL (140-400) Neutrophils (%) (Auto) 64 % (31-73) 50 % (31-73) Lymphocytes (%) (Auto) 18 % (24-48) 30 % (24-48) Monocytes (%) (Auto) 13 % (0-9) 13 % (0-9) Eosinophils (%) (Auto) 4 % (0-3) 5 % (0-3) Basophils (%) (Auto) 1 % (0-3) 3 % (0-3) Neutrophils # (Auto) 7.0 x10^3/uL (1.8-7.7) 5.7 x10^3/uL (1.8-7.7) Lymphocytes # (Auto) 1.9 x10^3/uL (1.0-4.8) 3.3 x10^3/uL (1.0-4.8) Monocytes # (Auto) 1.4 x10^3/uL (0.0-1.1) 1.5 x10^3/uL (0.0-1.1) Eosinophils # (Auto) 0.5 x10^3/uL (0.0-0.7) 0.5 x10^3/uL (0.0-0.7) Basophils # (Auto) 0.1 x10^3/uL (0.0-0.2) 0.3 x10^3/uL (0.0-0.2) Sodium Level 137 mmol/L (136-145) 138 mmol/L (136-145) Potassium Level 5.8 mmol/L (3.5-5.1) 5.4 mmol/L (3.5-5.1) Chloride Level 106 mmol/L (98-107) 106 mmol/L (98-107) Carbon Dioxide Level 26 mmol/L (21-32) 25 mmol/L (21-32) Anion Gap 5 (6-14) 7 (6-14) Blood Urea Nitrogen 18 mg/dL (8-26) 18 mg/dL (8-26) Creatinine 1.1 mg/dL (0.7-1.3) 1.1 mg/dL (0.7-1.3) Estimated GFR (Cockcroft-Gault) 96.4 96.4 BUN/Creatinine Ratio 16 (6-20) Glucose Level 89 mg/dL (70-99) 89 mg/dL (70-99) Calcium Level 8.6 mg/dL (8.5-10.1) 8.5 mg/dL (8.5-10.1) Total Bilirubin 1.9 mg/dL (0.2-1.0) Aspartate Amino Transf (AST/SGOT) 40 U/L (15-37) Alanine Aminotransferase (ALT/SGPT) 22 U/L (16-63) Alkaline Phosphatase 53 U/L (46-116) Total Protein 6.5 g/dL (6.4-8.2) Albumin 3.4 g/dL (3.4-5.0) Albumin/Globulin Ratio 1.1 (1.0-1.7) Assessment and Plan Assessmemt and Plan Problems Medical Problems: (1) Acute narcotic intoxication Status: Acute Comment Review of Relevant I have reviewed the following items amos (where applicable) has been applied. Labs Laboratory Tests Test 04/04/20 08:45 04/05/20 06:30 White Blood Count 10.9 x10^3/uL (4.0-11.0) 11.3 x10^3/uL (4.0-11.0) Red Blood Count 1.81 x10^6/uL (4.30-5.70) 1.75 x10^6/uL (4.30-5.70) Hemoglobin 6.4 g/dL (13.0-17.5) 6.3 g/dL (13.0-17.5) Hematocrit 17.6 % (39.0-53.0) 16.9 % (39.0-53.0) Mean Corpuscular Volume 97 fL (79-100) 96 fL (79-100) Mean Corpuscular Hemoglobin 36 pg (25-35) 36 pg (25-35) Mean Corpuscular Hemoglobin Concent 37 g/dL (31-37) 37 g/dL (31-37) Red Cell Distribution Width 23.4 % (11.5-14.5) 22.9 % (11.5-14.5) Platelet Count 308 x10^3/uL (140-400) 300 x10^3/uL (140-400) Neutrophils (%) (Auto) 64 % (31-73) 50 % (31-73) Lymphocytes (%) (Auto) 18 % (24-48) 30 % (24-48) Monocytes (%) (Auto) 13 % (0-9) 13 % (0-9) Eosinophils (%) (Auto) 4 % (0-3) 5 % (0-3) Basophils (%) (Auto) 1 % (0-3) 3 % (0-3) Neutrophils # (Auto) 7.0 x10^3/uL (1.8-7.7) 5.7 x10^3/uL (1.8-7.7) Lymphocytes # (Auto) 1.9 x10^3/uL (1.0-4.8) 3.3 x10^3/uL (1.0-4.8) Monocytes # (Auto) 1.4 x10^3/uL (0.0-1.1) 1.5 x10^3/uL (0.0-1.1) Eosinophils # (Auto) 0.5 x10^3/uL (0.0-0.7) 0.5 x10^3/uL (0.0-0.7) Basophils # (Auto) 0.1 x10^3/uL (0.0-0.2) 0.3 x10^3/uL (0.0-0.2) Sodium Level 137 mmol/L (136-145) 138 mmol/L (136-145) Potassium Level 5.8 mmol/L (3.5-5.1) 5.4 mmol/L (3.5-5.1) Chloride Level 106 mmol/L (98-107) 106 mmol/L (98-107) Carbon Dioxide Level 26 mmol/L (21-32) 25 mmol/L (21-32) Anion Gap 5 (6-14) 7 (6-14) Blood Urea Nitrogen 18 mg/dL (8-26) 18 mg/dL (8-26) Creatinine 1.1 mg/dL (0.7-1.3) 1.1 mg/dL (0.7-1.3) Estimated GFR (Cockcroft-Gault) 96.4 96.4 BUN/Creatinine Ratio 16 (6-20) Glucose Level 89 mg/dL (70-99) 89 mg/dL (70-99) Calcium Level 8.6 mg/dL (8.5-10.1) 8.5 mg/dL (8.5-10.1) Total Bilirubin 1.9 mg/dL (0.2-1.0) Aspartate Amino Transf (AST/SGOT) 40 U/L (15-37) Alanine Aminotransferase (ALT/SGPT) 22 U/L (16-63) Alkaline Phosphatase 53 U/L (46-116) Total Protein 6.5 g/dL (6.4-8.2) Albumin 3.4 g/dL (3.4-5.0) Albumin/Globulin Ratio 1.1 (1.0-1.7) Laboratory Tests Test 04/04/20 08:45 04/05/20 06:30 White Blood Count 10.9 x10^3/uL (4.0-11.0) 11.3 x10^3/uL (4.0-11.0) Red Blood Count 1.81 x10^6/uL (4.30-5.70) 1.75 x10^6/uL (4.30-5.70) Hemoglobin 6.4 g/dL (13.0-17.5) 6.3 g/dL (13.0-17.5) Hematocrit 17.6 % (39.0-53.0) 16.9 % (39.0-53.0) Mean Corpuscular Volume 97 fL (79-100) 96 fL (79-100) Mean Corpuscular Hemoglobin 36 pg (25-35) 36 pg (25-35) Mean Corpuscular Hemoglobin Concent 37 g/dL (31-37) 37 g/dL (31-37) Red Cell Distribution Width 23.4 % (11.5-14.5) 22.9 % (11.5-14.5) Platelet Count 308 x10^3/uL (140-400) 300 x10^3/uL (140-400) Neutrophils (%) (Auto) 64 % (31-73) 50 % (31-73) Lymphocytes (%) (Auto) 18 % (24-48) 30 % (24-48) Monocytes (%) (Auto) 13 % (0-9) 13 % (0-9) Eosinophils (%) (Auto) 4 % (0-3) 5 % (0-3) Basophils (%) (Auto) 1 % (0-3) 3 % (0-3) Neutrophils # (Auto) 7.0 x10^3/uL (1.8-7.7) 5.7 x10^3/uL (1.8-7.7) Lymphocytes # (Auto) 1.9 x10^3/uL (1.0-4.8) 3.3 x10^3/uL (1.0-4.8) Monocytes # (Auto) 1.4 x10^3/uL (0.0-1.1) 1.5 x10^3/uL (0.0-1.1) Eosinophils # (Auto) 0.5 x10^3/uL (0.0-0.7) 0.5 x10^3/uL (0.0-0.7) Basophils # (Auto) 0.1 x10^3/uL (0.0-0.2) 0.3 x10^3/uL (0.0-0.2) Sodium Level 137 mmol/L (136-145) 138 mmol/L (136-145) Potassium Level 5.8 mmol/L (3.5-5.1) 5.4 mmol/L (3.5-5.1) Chloride Level 106 mmol/L (98-107) 106 mmol/L (98-107) Carbon Dioxide Level 26 mmol/L (21-32) 25 mmol/L (21-32) Anion Gap 5 (6-14) 7 (6-14) Blood Urea Nitrogen 18 mg/dL (8-26) 18 mg/dL (8-26) Creatinine 1.1 mg/dL (0.7-1.3) 1.1 mg/dL (0.7-1.3) Estimated GFR (Cockcroft-Gault) 96.4 96.4 BUN/Creatinine Ratio 16 (6-20) Glucose Level 89 mg/dL (70-99) 89 mg/dL (70-99) Calcium Level 8.6 mg/dL (8.5-10.1) 8.5 mg/dL (8.5-10.1) Total Bilirubin 1.9 mg/dL (0.2-1.0) Aspartate Amino Transf (AST/SGOT) 40 U/L (15-37) Alanine Aminotransferase (ALT/SGPT) 22 U/L (16-63) Alkaline Phosphatase 53 U/L (46-116) Total Protein 6.5 g/dL (6.4-8.2) Albumin 3.4 g/dL (3.4-5.0) Albumin/Globulin Ratio 1.1 (1.0-1.7) Medications Current Medications Sodium Chloride 1,000 ml @ 0 mls/hr 1X ONCE IV Last administered on 04/01/20at 17:48; Start 04/01/20 at 17:15; Stop 04/01/20 at 17:16; Status DC Naloxone HCl (Narcan) 0.4 mg 1X ONCE IV Last administered on 04/01/20at 19:19; Start 04/01/20 at 19:00; Stop 04/01/20 at 19:01; Status DC Ferrous Sulfate (Feosol) 325 mg DAILY PO ; Start 04/02/20 at 09:00 Pantoprazole Sodium (Protonix) 40 mg DAILYAC PO ; Start 04/02/20 at 07:30 Sodium Chloride 1,000 ml @ 150 mls/hr Q6H40M IV Last administered on 04/02/20at 23:00; Start 04/01/20 at 21:00; Stop 04/03/20 at 00:33; Status DC Ondansetron HCl (Zofran) 4 mg PRN Q4HRS PRN IV NAUSEA/VOMITING 1ST CHOICE; Start 04/01/20 at 20:30 Acetaminophen (Tylenol) 650 mg PRN Q4HRS PRN PO TEMP OVER 100.4F OR MILD PAIN; Start 04/01/20 at 20:30 Hydromorphone HCl (Dilaudid) 0.5 mg PRN Q2HRS PRN IV SEVERE PAIN 7-10 Last administered on 04/02/20at 17:13; Start 04/01/20 at 20:30; Stop 04/03/20 at 13:15; Status DC Enoxaparin Sodium (Lovenox 40mg Syringe) 40 mg Q24H SQ ; Start 04/01/20 at 21:00 Oxycodone HCl (Roxicodone) 5 mg PRN Q6HRS PRN PO MODERATE PAIN 4-6 Last administered on 04/05/20at 02:05; Start 04/01/20 at 20:30 Sodium Chloride 1,000 ml @ 150 mls/hr Q6H40M IV Last administered on 04/05/20at 05:58; Start 04/02/20 at 23:00 Sodium Polystyrene Sulfonate (Kayexalate) 15 gm 1X ONCE PO Last administered on 04/04/20at 13:51; Start 04/04/20 at 13:15; Stop 04/04/20 at 13:16; Status DC Haloperidol (Haldol) 5 mg QHS PRN PO AGITATION; Start 04/04/20 at 17:45 Lorazepam (Ativan) 1 mg PRN Q6HRS PRN PO ANXIETY / AGITATION Last administered on 04/04/20at 21:07; Start 04/04/20 at 17:45 Active Scripts Active Protonix (Pantoprazole Sodium) 20 Mg Tablet.dr 1 Tab PO DAILY Ferrous Sulfate 325 Mg Tablet 1 Tab PO DAILY Ms Contin (Morphine Sulfate) 30 Mg Tablet.er 1 Tab PO BID Hydrea (Hydroxyurea) 500 Mg Capsule 500 Mg PO DAILY Oxycodone Hcl 30 Mg Tablet 30 Mg PO PRN Q6HRS PRN Folic Acid 1 Mg Tablet 1 Mg PO DAILY Vitals/I & O Vital Sign - Last 24 Hours 04/04/20 04/04/20 04/04/20 04/04/20 10:52 15:07 17:52 19:28 Temp 98.7 98.6 98.7 98.6 Pulse 78 98 89 Resp 16 18 18 B/P (MAP) 120/64 (82) 126/72 (90) 113/90 (98) Pulse Ox 89 92 92 O2 Delivery Room Air Nasal Cannula Room Air Nasal Cannula O2 Flow Rate 2.0 2.0 04/04/20 04/04/20 04/04/20 04/05/20 19:32 20:00 23:15 02:05 Temp 98.3 98.3 Pulse 67 Resp 18 B/P (MAP) 128/57 (80) Pulse Ox 96 O2 Delivery Nasal Cannula Nasal Cannula Nasal Cannula Room Air O2 Flow Rate 2.0 2.0 04/05/20 04/05/20 02:14 03:05 Temp 98.1 98.1 Pulse 85 Resp 16 B/P (MAP) 119/83 (95) Pulse Ox 91 O2 Delivery Room Air Nasal Cannula O2 Flow Rate 2.0 Intake and Output 04/04/20 04/04/20 04/05/20 15:00 23:00 07:00 Intake Total 380 ml 840 ml Balance 380 ml 840 ml JOSUÉ CARRENO MD April 05, 2020 08:23
[2020-04-05] MEDS: SODIUM POLYSTYRENE SULFON/SORB 15 GM/60 ML ORAL.SUSP PO ONE (08:30)
[2020-04-05] MEDS: FERROUS SULFATE 325 MG TABLET. PO SCH ×2 (09:00→15:51)
[2020-04-05 09:46] LABS: ANISOCYTOSIS MOD; PLT ESTIMATE ADEQUATE (ADEQUATE)
[2020-04-05 09:47] LABS: OVALOCYTES PRESENT; POIKILOCYTOSIS PRESENT; POLYCHROMASIA PRESENT; SCHISTOCYTES OCC; SICKLE CELLS PRESENT; TARGET CELLS PRESENT
[2020-04-05 11:59] VITALS: BP 118/50
[2020-04-05] MEDS ORDERED: HALOPERIDOL 5 MG TABLET. PO PRN (12:45)
--- NOTE | 2020-04-05 15:53 | NUR ---
Patient refused medication and blood transfusion at 0800 hours. Patient took morning meds at 1545 hours. Patient still refused blood transfusion
[2020-04-05 15:59] VITALS: BP 119/57
[2020-04-05] MEDS: ENOXAPARIN 40 MG/0.4 ML SYRINGE. SQ SCH (21:00)
[2020-04-06 00:10] VITALS: BP 139/90
[2020-04-06 03:06] VITALS: BP 110/64
[2020-04-06 05:29] LABS: ALBUMIN 3.3 g/dL (3.4-5.0); ALBUMIN/GLOBULIN RATIO 1.1 (1.0-1.7); CALCIUM 8.1 mg/dL (8.5-10.1); CREATININE 1.2 mg/dL (0.7-1.3); GFR 87.2; POTASSIUM 4.7 mmol/L (3.5-5.1); TOTAL BILIRUBIN 1.9 mg/dL (0.2-1.0); TOTAL PROTEIN 6.3 g/dL (6.4-8.2)
[2020-04-06 05:43] LABS: BASO # 0.2 x10^3/uL (0.0-0.2); BASO % 1 % (0-3); EOS # 0.5 x10^3/uL (0.0-0.7); EOS % 4 % (0-3); LYMPH % 32 % (24-48); MEAN CORPUSCULAR HEMOGLOBIN 35 pg (25-35); MEAN CORPUSCULAR HGB CONC 37 g/dL (31-37); MEAN CORPUSCULAR VOLUME 97 fL (79-100); MONO # 2.1 x10^3/uL (0.0-1.1); MONO % 17 % (0-9); NEUT # 5.8 x10^3/uL (1.8-7.7); NEUT % 46 % (31-73); PLATELET COUNT 310 x10^3/uL (140-400); RED BLOOD COUNT 1.72 x10^6/uL (4.30-5.70); RED CELL DISTRIBUTION WIDTH 22.9 % (11.5-14.5); WHITE BLOOD COUNT 12.5 x10^3/uL (4.0-11.0)
[2020-04-06 06:07] LABS: HEMATOCRIT 16.7 % (39.0-53.0); HEMOGLOBIN 6.1 g/dL (13.0-17.5)
[2020-04-06] MEDS: IV NORMAL SALINE 1000ML BAG 1,000 ML IV SCH ×3 (06:58→20:20)
[2020-04-06 07:45] VITALS: BP 128/65
--- NOTE | 2020-04-06 08:32 | PDOC ---
PROGRESS NOTES Chief Complaint Chief Complaint A/P: Acute anemia - 2/2 SCD crisis, improved. No Dilaudid given she is not awakening. Narcan was necessary earlier in the shift. Will type and screen, transfuse if Hb drops below 7 tomorrow morning. Acute narcotic intoxication - h/o heroin abuse listed on her chart. Will try to avoid excessive opioids, but they are indicated for SCD pain crisis Sickle cell anemia - as above Elevated bilirubin - 2/2 SCD, will monitor MICHEAL - vasomotor nephropathy from SCD crisis, will hydrate Hyperkalemia - kayexelate, hydration FEN - 150cc/hr NSS, general diet PPX - lovenox FULL CODE DIspo - inpatient History of Present Illness History of Present Illness Ms Krishnan is a 29 yo M (trans female) w/ PMHx sickle cell disease who presents to the emergency room complaining of sickle cell pain crisis. Upon arrival to the emergency room patient is lethargic and became hypoxic when sleeping. Patient admits to taking Dilaudid 1 hour prior to arrival. Found hypoxic into the mid 80s, placed on nasal cannula. Hb 7, reticulocyte 14, bilirubin 2.9, CR 1.5. Placed on IV fluids and admitted for further care 04/02: Hb 6.5. REFUSED TRANSFUSION THIS AM 04/03: Hb 7 today. Patient tells me "back pain", then rubs eyes for 3.5 minutes, snores and does not respond, but opens eyes wide to sternal rub. Per nursing staff has been eating voraciously, and refusing nearly all medical therapies did not ask for pain medication until an hour ago had been off pain medication for over a day. Creatinine improved to 1.2, LFTs improved. 04/04: Only required 1 dose of p.o. oxycodone 5 mg over the past 18 hours. K5.8, CR 1.1, Hb 6.4. She refused opening eyes examined during examination despite request. She says he took my IV pain medication away and needed IV pain medication for her back. "I am Mike and I am going to burn down off [place]". When asked if she has plans to hurt herself or others specifically she says "I am just cannot burn the whole world down while here". When offered blood transfusion she says blood transfusions kill people I will never have a b lood transfusion. Refuses answer when asked if she has had a blood transfusion previously. 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 04/05: Hb 6.3, K5.4. D/W psychiatric social work liaison yesterday about behavioral issues, found that patient has been institutionalized at OSH twice in the past few years for violent and psychotic behavior and has been diagnosed with schizophrenia. Not on meds. Continues to refuse blood transfusion, requesting IV pain medication. Today refuses to speak with me keeps eyes closed. After leave the room walks on the room goes to the refrigerator and takes all of the putting bumps on the shoulder and walks back in the room. Afebrile overnight. Still on 2L NC O2. Hb 6.1, still refusing transfusion. K4.8. VS stable. Refuses to verbally engage with me or open eyes. CXR obtained with stable cardiomegaly no acute infiltrates, and old appearing left- sided rib and scapular trauma since prior CXR in 2018. Plan: No further IV pain medications. D/W RN, not safe to discharge actively psychotic Appreciate psychiatric assistance with her care, will d/w PAT team if home is a safe d/c plan. Cont to offer transfusion Vitals Vitals Vital Signs Date Time Temp Pulse Resp B/P (MAP) Pulse Ox O2 Delivery O2 Flow Rate FiO2 04/06/20 07:45 75 128/65 (86) 04/06/20 07:09 Nasal Cannula 2.0 04/06/20 03:06 98.4 18 95 98.4 Physical Exam General: Oriented X3, Cooperative, mild distress, Other (Drowsy) Lungs: Clear Abdomen: Normal bowel sounds, Soft, No tenderness, No hepatosplenomegaly, No masses Extremities: No clubbing, No cyanosis, No edema, Normal pulses, No tenderness/swelling Skin: No rashes, No breakdown, No significant lesion Labs LABS Laboratory Tests Test 04/06/20 04:19 White Blood Count 12.5 x10^3/uL (4.0-11.0) Red Blood Count 1.73 x10^6/uL (4.30-5.70) Hemoglobin 6.1 g/dL (13.0-17.5) Hematocrit 16.7 % (39.0-53.0) Mean Corpuscular Volume 97 fL (79-100) Mean Corpuscular Hemoglobin 35 pg (25-35) Mean Corpuscular Hemoglobin Concent 37 g/dL (31-37) Red Cell Distribution Width 22.9 % (11.5-14.5) Platelet Count 310 x10^3/uL (140-400) Neutrophils (%) (Auto) 46 % (31-73) Lymphocytes (%) (Auto) 32 % (24-48) Monocytes (%) (Auto) 17 % (0-9) Eosinophils (%) (Auto) 4 % (0-3) Basophils (%) (Auto) 1 % (0-3) Neutrophils # (Auto) 5.8 x10^3/uL (1.8-7.7) Lymphocytes # (Auto) 4.0 x10^3/uL (1.0-4.8) Monocytes # (Auto) 2.1 x10^3/uL (0.0-1.1) Eosinophils # (Auto) 0.5 x10^3/uL (0.0-0.7) Basophils # (Auto) 0.2 x10^3/uL (0.0-0.2) Absolute Reticulocyte Count 0.166 x10^6/uL (0.020-0.120) Percent Reticulocyte Count 9.6 % (0.5-2.3) Immature Reticulocyte Fraction 0.80 (0.20-0.60) Sodium Level 140 mmol/L (136-145) Potassium Level 4.7 mmol/L (3.5-5.1) Chloride Level 107 mmol/L (98-107) Carbon Dioxide Level 24 mmol/L (21-32) Anion Gap 9 (6-14) Blood Urea Nitrogen 14 mg/dL (8-26) Creatinine 1.2 mg/dL (0.7-1.3) Estimated GFR (Cockcroft-Gault) 87.2 BUN/Creatinine Ratio 12 (6-20) Glucose Level 77 mg/dL (70-99) Calcium Level 8.1 mg/dL (8.5-10.1) Total Bilirubin 1.9 mg/dL (0.2-1.0) Aspartate Amino Transf (AST/SGOT) 66 U/L (15-37) Alanine Aminotransferase (ALT/SGPT) 32 U/L (16-63) Alkaline Phosphatase 48 U/L (46-116) Total Protein 6.3 g/dL (6.4-8.2) Albumin 3.3 g/dL (3.4-5.0) Albumin/Globulin Ratio 1.1 (1.0-1.7) Assessment and Plan Assessmemt and Plan Problems Medical Problems: (1) Acute narcotic intoxication Status: Acute Comment Review of Relevant I have reviewed the following items amos (where applicable) has been applied. Labs Laboratory Tests Test 04/04/20 08:45 04/05/20 06:30 04/06/20 04:19 White Blood Count 10.9 x10^3/uL (4.0-11.0) 11.3 x10^3/uL (4.0-11.0) 12.5 x10^3/uL (4.0-11.0) Red Blood Count 1.81 x10^6/uL (4.30-5.70) 1.75 x10^6/uL (4.30-5.70) 1.73 x10^6/uL (4.30-5.70) Hemoglobin 6.4 g/dL (13.0-17.5) 6.3 g/dL (13.0-17.5) 6.1 g/dL (13.0-17.5) Hematocrit 17.6 % (39.0-53.0) 16.9 % (39.0-53.0) 16.7 % (39.0-53.0) Mean Corpuscular Volume 97 fL (79-100) 96 fL (79-100) 97 fL (79-100) Mean Corpuscular Hemoglobin 36 pg (25-35) 36 pg (25-35) 35 pg (25-35) Mean Corpuscular Hemoglobin Concent 37 g/dL (31-37) 37 g/dL (31-37) 37 g/dL (31-37) Red Cell Distribution Width 23.4 % (11.5-14.5) 22.9 % (11.5-14.5) 22.9 % (11.5-14.5) Platelet Count 308 x10^3/uL (140-400) 300 x10^3/uL (140-400) 310 x10^3/uL (140-400) Neutrophils (%) (Auto) 64 % (31-73) 50 % (31-73) 46 % (31-73) Lymphocytes (%) (Auto) 18 % (24-48) 30 % (24-48) 32 % (24-48) Monocytes (%) (Auto) 13 % (0-9) 13 % (0-9) 17 % (0-9) Eosinophils (%) (Auto) 4 % (0-3) 5 % (0-3) 4 % (0-3) Basophils (%) (Auto) 1 % (0-3) 3 % (0-3) 1 % (0-3) Neutrophils # (Auto) 7.0 x10^3/uL (1.8-7.7) 5.7 x10^3/uL (1.8-7.7) 5.8 x10^3/uL (1.8-7.7) Lymphocytes # (Auto) 1.9 x10^3/uL (1.0-4.8) 3.3 x10^3/uL (1.0-4.8) 4.0 x10^3/uL (1.0-4.8) Monocytes # (Auto) 1.4 x10^3/uL (0.0-1.1) 1.5 x10^3/uL (0.0-1.1) 2.1 x10^3/uL (0.0-1.1) Eosinophils # (Auto) 0.5 x10^3/uL (0.0-0.7) 0.5 x10^3/uL (0.0-0.7) 0.5 x10^3/uL (0.0-0.7) Basophils # (Auto) 0.1 x10^3/uL (0.0-0.2) 0.3 x10^3/uL (0.0-0.2) 0.2 x10^3/uL (0.0-0.2) Sodium Level 137 mmol/L (136-145) 138 mmol/L (136-145) 140 mmol/L (136-145) Potassium Level 5.8 mmol/L (3.5-5.1) 5.4 mmol/L (3.5-5.1) 4.7 mmol/L (3.5-5.1) Chloride Level 106 mmol/L (98-107) 106 mmol/L (98-107) 107 mmol/L (98-107) Carbon Dioxide Level 26 mmol/L (21-32) 25 mmol/L (21-32) 24 mmol/L (21-32) Anion Gap 5 (6-14) 7 (6-14) 9 (6-14) Blood Urea Nitrogen 18 mg/dL (8-26) 18 mg/dL (8-26) 14 mg/dL (8-26) Creatinine 1.1 mg/dL (0.7-1.3) 1.1 mg/dL (0.7-1.3) 1.2 mg/dL (0.7-1.3) Estimated GFR (Cockcroft-Gault) 96.4 96.4 87.2 BUN/Creatinine Ratio 16 (6-20) 12 (6-20) Glucose Level 89 mg/dL (70-99) 89 mg/dL (70-99) 77 mg/dL (70-99) Calcium Level 8.6 mg/dL (8.5-10.1) 8.5 mg/dL (8.5-10.1) 8.1 mg/dL (8.5-10.1) Total Bilirubin 1.9 mg/dL (0.2-1.0) 1.9 mg/dL (0.2-1.0) Aspartate Amino Transf (AST/SGOT) 40 U/L (15-37) 66 U/L (15-37) Alanine Aminotransferase (ALT/SGPT) 22 U/L (16-63) 32 U/L (16-63) Alkaline Phosphatase 53 U/L (46-116) 48 U/L (46-116) Total Protein 6.5 g/dL (6.4-8.2) 6.3 g/dL (6.4-8.2) Albumin 3.4 g/dL (3.4-5.0) 3.3 g/dL (3.4-5.0) Albumin/Globulin Ratio 1.1 (1.0-1.7) 1.1 (1.0-1.7) Platelet Estimate Adequate (ADEQUATE) Large Platelets Present Giant Platelets Occ Polychromasia Present Poikilocytosis Present Anisocytosis Mod Sickle Cells Present Target Cells Present Ovalocytes Present Schistocytes Occ Absolute Reticulocyte Count 0.166 x10^6/uL (0.020-0.120) Percent Reticulocyte Count 9.6 % (0.5-2.3) Immature Reticulocyte Fraction 0.80 (0.20-0.60) Laboratory Tests Test 04/06/20 04:19 White Blood Count 12.5 x10^3/uL (4.0-11.0) Red Blood Count 1.73 x10^6/uL (4.30-5.70) Hemoglobin 6.1 g/dL (13.0-17.5) Hematocrit 16.7 % (39.0-53.0) Mean Corpuscular Volume 97 fL (79-100) Mean Corpuscular Hemoglobin 35 pg (25-35) Mean Corpuscular Hemoglobin Concent 37 g/dL (31-37) Red Cell Distribution Width 22.9 % (11.5-14.5) Platelet Count 310 x10^3/uL (140-400) Neutrophils (%) (Auto) 46 % (31-73) Lymphocytes (%) (Auto) 32 % (24-48) Monocytes (%) (Auto) 17 % (0-9) Eosinophils (%) (Auto) 4 % (0-3) Basophils (%) (Auto) 1 % (0-3) Neutrophils # (Auto) 5.8 x10^3/uL (1.8-7.7) Lymphocytes # (Auto) 4.0 x10^3/uL (1.0-4.8) Monocytes # (Auto) 2.1 x10^3/uL (0.0-1.1) Eosinophils # (Auto) 0.5 x10^3/uL (0.0-0.7) Basophils # (Auto) 0.2 x10^3/uL (0.0-0.2) Absolute Reticulocyte Count 0.166 x10^6/uL (0.020-0.120) Percent Reticulocyte Count 9.6 % (0.5-2.3) Immature Reticulocyte Fraction 0.80 (0.20-0.60) Sodium Level 140 mmol/L (136-145) Potassium Level 4.7 mmol/L (3.5-5.1) Chloride Level 107 mmol/L (98-107) Carbon Dioxide Level 24 mmol/L (21-32) Anion Gap 9 (6-14) Blood Urea Nitrogen 14 mg/dL (8-26) Creatinine 1.2 mg/dL (0.7-1.3) Estimated GFR (Cockcroft-Gault) 87.2 BUN/Creatinine Ratio 12 (6-20) Glucose Level 77 mg/dL (70-99) Calcium Level 8.1 mg/dL (8.5-10.1) Total Bilirubin 1.9 mg/dL (0.2-1.0) Aspartate Amino Transf (AST/SGOT) 66 U/L (15-37) Alanine Aminotransferase (ALT/SGPT) 32 U/L (16-63) Alkaline Phosphatase 48 U/L (46-116) Total Protein 6.3 g/dL (6.4-8.2) Albumin 3.3 g/dL (3.4-5.0) Albumin/Globulin Ratio 1.1 (1.0-1.7) Medications Current Medications Sodium Chloride 1,000 ml @ 0 mls/hr 1X ONCE IV Last administered on 04/01/20at 17:48; Start 04/01/20 at 17:15; Stop 04/01/20 at 17:16; Status DC Naloxone HCl (Narcan) 0.4 mg 1X ONCE IV Last administered on 04/01/20at 19:19; Start 04/01/20 at 19:00; Stop 04/01/20 at 19:01; Status DC Ferrous Sulfate (Feosol) 325 mg DAILY PO Last administered on 04/05/20at 15:51; Start 04/02/20 at 09:00 Pantoprazole Sodium (Protonix) 40 mg DAILYAC PO ; Start 04/02/20 at 07:30 Sodium Chloride 1,000 ml @ 150 mls/hr Q6H40M IV Last administered on 04/02/20at 23:00; Start 04/01/20 at 21:00; Stop 04/03/20 at 00:33; Status DC Ondansetron HCl (Zofran) 4 mg PRN Q4HRS PRN IV NAUSEA/VOMITING 1ST CHOICE; Start 04/01/20 at 20:30 Acetaminophen (Tylenol) 650 mg PRN Q4HRS PRN PO TEMP OVER 100.4F OR MILD PAIN; Start 04/01/20 at 20:30 Hydromorphone HCl (Dilaudid) 0.5 mg PRN Q2HRS PRN IV SEVERE PAIN 7-10 Last administered on 04/02/20at 17:13; Start 04/01/20 at 20:30; Stop 04/03/20 at 13:15; Status DC Enoxaparin Sodium (Lovenox 40mg Syringe) 40 mg Q24H SQ ; Start 04/01/20 at 21:00 Oxycodone HCl (Roxicodone) 5 mg PRN Q6HRS PRN PO MODERATE PAIN 4-6 Last administered on 04/05/20at 23:45; Start 04/01/20 at 20:30 Sodium Chloride 1,000 ml @ 150 mls/hr Q6H40M IV Last administered on 04/06/20at 06:58; Start 04/02/20 at 23:00 Sodium Polystyrene Sulfonate (Kayexalate) 15 gm 1X ONCE PO Last administered on 04/04/20at 13:51; Start 04/04/20 at 13:15; Stop 04/04/20 at 13:16; Status DC Haloperidol (Haldol) 5 mg QHS PRN PO AGITATION; Start 04/04/20 at 17:45; Stop 04/05/20 at 12:36; Status DC Lorazepam (Ativan) 1 mg PRN Q6HRS PRN PO ANXIETY / AGITATION Last administered on 04/04/20at 21:07; Start 04/04/20 at 17:45 Sodium Polystyrene Sulfonate (Kayexalate) 15 gm 1X ONCE PO Last administered on 04/05/20at 08:30; Start 04/05/20 at 08:30; Stop 04/05/20 at 08:31; Status DC Haloperidol (Haldol) 5 mg PRN QHS PRN PO AGITATION, 2ND CHOICE; Start 04/05/20 at 12:45 Active Scripts Active Protonix (Pantoprazole Sodium) 20 Mg Tablet.dr 1 Tab PO DAILY Ferrous Sulfate 325 Mg Tablet 1 Tab PO DAILY Ms Contin (Morphine Sulfate) 30 Mg Tablet.er 1 Tab PO BID Hydrea (Hydroxyurea) 500 Mg Capsule 500 Mg PO DAILY Oxycodone Hcl 30 Mg Tablet 30 Mg PO PRN Q6HRS PRN Folic Acid 1 Mg Tablet 1 Mg PO DAILY Vitals/I & O Vital Sign - Last 24 Hours 04/05/20 04/05/20 04/05/20 04/05/20 11:59 15:51 15:59 16:53 Temp 98.6 98.6 Pulse 98 94 Resp 20 18 12 B/P (MAP) 118/50 (72) 119/57 (77) Pulse Ox 91 91 O2 Delivery Nasal Cannula Nasal Cannula Nasal Cannula O2 Flow Rate 3.0 3.0 2.0 04/05/20 04/05/20 04/05/20 04/06/20 19:00 20:00 23:45 00:10 Temp 98.8 97.7 98.8 97.7 Pulse 90 98 Resp 20 20 B/P (MAP) 139/90 (106) Pulse Ox 92 92 92 O2 Delivery Nasal Cannula Nasal Cannula Nasal Cannula Nasal Cannula O2 Flow Rate 2.0 2.0 04/06/20 04/06/20 04/06/20 04/06/20 00:45 03:06 07:09 07:45 Temp 98.4 98.4 Pulse 71 75 Resp 18 B/P (MAP) 110/64 (79) 128/65 (86) Pulse Ox 92 95 O2 Delivery Nasal Cannula Nasal Cannula Nasal Cannula O2 Flow Rate 2.0 2.0 Intake and Output 04/05/20 04/05/20 04/06/20 15:00 23:00 07:00 Intake Total 560 ml 720 ml Balance 560 ml 720 ml JOSUÉ CARRENO MD April 06, 2020 08:32
[2020-04-06] MEDS: PANTOPRAZOLE 40 MG TABLET.DR. PO SCH (08:58)
[2020-04-06] MEDS: FERROUS SULFATE 325 MG TABLET. PO SCH (08:58)
[2020-04-06] MEDS: oxyCODONE IR 5 MG TABLET PO PRN ×3 (08:59→20:23)
--- NOTE | 2020-04-06 09:42 | RAD ---
CHEST AP ONLY Clinical indications: Hypoxia COMPARISON: November 26, 2015. Findings: Old appearing healed fractures of the lateral aspect of the left rib cage are seen which have occurred since the previous chest x-ray. There is a deformity of the superior body of the left scapula with a displaced bone fragment. This is consistent with an old displaced fracture here. There is linear scarring within the left lower lung zone. No lung consolidation or pulmonary edema or pleural effusion or pneumothorax is seen. Heart size is chronically enlarged. The mediastinum and pulmonary vasculature and both cora are unremarkable otherwise. Impression: No acute lung infiltrate. Old trauma of the left chest. Stable chronic cardiomegaly. Electronically signed by: Live Monroy MD (04/06/2020 9:38 AM) [id number]
[2020-04-06 13:21] VITALS: BP 112/55
--- NOTE | 2020-04-06 18:23 | NUR ---
Patient refused blood transfusion and IV Fluid.
--- NOTE | 2020-04-06 18:25 | NUR ---
Patient refused vitals .
[2020-04-06 19:00] VITALS: BP 117/60
[2020-04-06] MEDS: LORazepam 1 MG TABLET PO PRN (20:22)
[2020-04-06] MEDS: ENOXAPARIN 40 MG/0.4 ML SYRINGE. SQ SCH (21:00)
[2020-04-06 23:00] VITALS: BP 128/71
[2020-04-07 03:00] VITALS: BP 108/61
[2020-04-07] MEDS: IV NORMAL SALINE 1000ML BAG 1,000 ML IV SCH ×2 (03:00→09:40)
[2020-04-07 07:00] VITALS: BP 122/52
[2020-04-07] MEDS: PANTOPRAZOLE 40 MG TABLET.DR. PO SCH (07:30)
--- NOTE | 2020-04-07 08:48 | NUR ---
Pt refused assessment. Would not answer any questions, including name/. Pt complains of being cold and hungry, although breakfast tray at bedside is nearly gone. Additional blanket put on pt. Am meds not administered as pt would not participate in care. Will continue to monitor.
[2020-04-07] MEDS: FERROUS SULFATE 325 MG TABLET. PO SCH (08:52)
--- NOTE | 2020-04-07 09:04 | NUR ---
YASIR following. Discussed with RN, pt from home, refused blood, refusing meds, room air. [facility] following for self pay status. RN anticipates discharge due to pt refusing treatment. YASIR will continue to follow. Addendum: 04/07/20 at 1151 by WESLEY COOLEY PAT referral. YASIR notified Singh [place] will see pt today. YASIR will continue to follow. Addendum: 04/07/20 at 1308 by WESLEY COOLEY Singh met with pt, pt has paranoid schizophrenia dx. Pt denies SI or HI, paranoid about getting blood and having paranoid thoughts. Pt reported her (identifies as female) aunty can pick her up if being discharged. Pt has been cleared by PAT. RN notified.
[2020-04-07 11:00] VITALS: BP 119/60
--- NOTE | 2020-04-07 11:45 | PDOC ---
PROGRESS NOTES Chief Complaint Chief Complaint DISCHARGE DX ======= Acute anemia - 2/2 SCD crisis, improved. No Dilaudid given she is not awakening. Will type and screen, transfuse if Hb drops below 7 BUT PATIENT HAS REFUSED AMA Acute narcotic intoxication - h/o heroin abuse listed on her chart. Will try to avoid excessive opioids, but they are indicated for SCD pain crisis Sickle cell anemia - as above Elevated bilirubin - 2/2 SCD, will monitor MICHEAL - vasomotor nephropathy from SCD crisis, will hydrate Hyperkalemia - kayexelate, hydration FEN - 150cc/hr NSS, general diet PPX - lovenox FULL CODE DIspo - inpatient d/c pt refusing most treatments DESIRES TO GO HOME TODAY D/C PLANNING 24 MIN History of Present Illness History of Present Illness Ms Krishnan is a 29 yo M (trans female) w/ PMHx sickle cell disease who presents to the emergency room complaining of sickle cell pain crisis. Upon arrival to the emergency room patient is lethargic and became hypoxic when sleeping. Patient admits to taking Dilaudid 1 hour prior to arrival. Found hypoxic into the mid 80s, placed on nasal cannula. Hb 7, reticulocyte 14, bilirubin 2.9, CR 1.5. Placed on IV fluids and admitted for further care 04/02: Hb 6.5. REFUSED TRANSFUSION THIS AM 04/03: Hb 7 today. Patient tells me "back pain", then rubs eyes for 3.5 minutes, snores and does not respond, but opens eyes wide to sternal rub. Per nursing staff has been eating voraciously, and refusing nearly all medical therapies did not ask for pain medication until an hour ago had been off pain medication for over a day. Creatinine improved to 1.2, LFTs improved. 04/04: Only required 1 dose of p.o. oxycodone 5 mg over the past 18 hours. K5.8, CR 1.1, Hb 6.4. She refused opening eyes examined during examination despite request. She says he took my IV pain medication away and needed IV pain medication for her back. "I am Mike and I am going to burn down off [place]". When asked if she has plans to hurt herself or others specifically she says "I am just cannot burn the whole world down while here". When offered blo od transfusion she says blood transfusions kill people I will never have a blood transfusion. Refuses answer when asked if she has had a blood transfusion previously. 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 04/05: Hb 6.3, K5.4. D/W psychiatric social work liaison yesterday about behavioral issues, found that patient has been institutionalized [facility] in the past few years for violent and psychotic behavior and has been diagnosed with schizophrenia. Not on meds. Continues to refuse blood transfusion, requesting IV pain medication. Today refuses to speak with me keeps eyes closed. After leave the room walks on the room goes to the refrigerator and takes all of the putting bumps on the shoulder and walks back in the room. Afebrile overnight. Still on 2L NC O2. Hb 6.1, still refusing transfusion. K4.8. VS stable. Refuses to verbally engage with me or open eyes. CXR obtained with stable cardiomegaly no acute infiltrates, and old appearing left- sided rib and scapular trauma since prior CXR in 2018. Plan: No further IV pain medications. D/W RN, not safe to discharge actively psychotic Appreciate psychiatric assistance with her care, will d/w PAT team if home is a safe d/c plan. Cont to offer transfusion Vitals Vitals Vital Signs Date Time Temp Pulse Resp B/P (MAP) Pulse Ox O2 Delivery O2 Flow Rate FiO2 04/07/20 07:00 97.8 81 17 122/52 (75) 93 Room Air 97.8 04/06/20 23:00 2.0 Physical Exam General: Alert, Oriented X3, Cooperative, mild distress, Other (Drowsy) Lungs: Clear Abdomen: Normal bowel sounds, Soft, No tenderness, No hepatosplenomegaly, No masses Extremities: No clubbing, No cyanosis, No edema, Normal pulses, No tenderness/swelling Skin: No rashes, No breakdown, No significant lesion Assessment and Plan Assessmemt and Plan Problems Medical Problems: (1) Acute narcotic intoxication Status: Acute Comment Review of Relevant I have reviewed the following items amos (where applicable) has been applied. Labs Laboratory Tests Test 04/06/20 04:19 White Blood Count 12.5 x10^3/uL (4.0-11.0) Red Blood Count 1.73 x10^6/uL (4.30-5.70) Hemoglobin 6.1 g/dL (13.0-17.5) Hematocrit 16.7 % (39.0-53.0) Mean Corpuscular Volume 97 fL (79-100) Mean Corpuscular Hemoglobin 35 pg (25-35) Mean Corpuscular Hemoglobin Concent 37 g/dL (31-37) Red Cell Distribution Width 22.9 % (11.5-14.5) Platelet Count 310 x10^3/uL (140-400) Neutrophils (%) (Auto) 46 % (31-73) Lymphocytes (%) (Auto) 32 % (24-48) Monocytes (%) (Auto) 17 % (0-9) Eosinophils (%) (Auto) 4 % (0-3) Basophils (%) (Auto) 1 % (0-3) Neutrophils # (Auto) 5.8 x10^3/uL (1.8-7.7) Lymphocytes # (Auto) 4.0 x10^3/uL (1.0-4.8) Monocytes # (Auto) 2.1 x10^3/uL (0.0-1.1) Eosinophils # (Auto) 0.5 x10^3/uL (0.0-0.7) Basophils # (Auto) 0.2 x10^3/uL (0.0-0.2) Absolute Reticulocyte Count 0.166 x10^6/uL (0.020-0.120) Percent Reticulocyte Count 9.6 % (0.5-2.3) Immature Reticulocyte Fraction 0.80 (0.20-0.60) Sodium Level 140 mmol/L (136-145) Potassium Level 4.7 mmol/L (3.5-5.1) Chloride Level 107 mmol/L (98-107) Carbon Dioxide Level 24 mmol/L (21-32) Anion Gap 9 (6-14) Blood Urea Nitrogen 14 mg/dL (8-26) Creatinine 1.2 mg/dL (0.7-1.3) Estimated GFR (Cockcroft-Gault) 87.2 BUN/Creatinine Ratio 12 (6-20) Glucose Level 77 mg/dL (70-99) Calcium Level 8.1 mg/dL (8.5-10.1) Total Bilirubin 1.9 mg/dL (0.2-1.0) Aspartate Amino Transf (AST/SGOT) 66 U/L (15-37) Alanine Aminotransferase (ALT/SGPT) 32 U/L (16-63) Alkaline Phosphatase 48 U/L (46-116) Total Protein 6.3 g/dL (6.4-8.2) Albumin 3.3 g/dL (3.4-5.0) Albumin/Globulin Ratio 1.1 (1.0-1.7) Medications Current Medications Sodium Chloride 1,000 ml @ 0 mls/hr 1X ONCE IV Last administered on 04/01/20at 17:48; Start 04/01/20 at 17:15; Stop 04/01/20 at 17:16; Status DC Naloxone HCl (Narcan) 0.4 mg 1X ONCE IV Last administered on 04/01/20at 19:19; Start 04/01/20 at 19:00; Stop 04/01/20 at 19:01; Status DC Ferrous Sulfate (Feosol) 325 mg DAILY PO Last administered on 04/06/20at 08:58; Start 04/02/20 at 09:00 Pantoprazole Sodium (Protonix) 40 mg DAILYAC PO Last administered on 04/06/20at 08:58; Start 04/02/20 at 07:30 Sodium Chloride 1,000 ml @ 150 mls/hr Q6H40M IV Last administered on 04/02/20at 23:00; Start 04/01/20 at 21:00; Stop 04/03/20 at 00:33; Status DC Ondansetron HCl (Zofran) 4 mg PRN Q4HRS PRN IV NAUSEA/VOMITING 1ST CHOICE; Start 04/01/20 at 20:30 Acetaminophen (Tylenol) 650 mg PRN Q4HRS PRN PO TEMP OVER 100.4F OR MILD PAIN; Start 04/01/20 at 20:30 Hydromorphone HCl (Dilaudid) 0.5 mg PRN Q2HRS PRN IV SEVERE PAIN 7-10 Last administered on 04/02/20at 17:13; Start 04/01/20 at 20:30; Stop 04/03/20 at 13:15; Status DC Enoxaparin Sodium (Lovenox 40mg Syringe) 40 mg Q24H SQ ; Start 04/01/20 at 21:00 Oxycodone HCl (Roxicodone) 5 mg PRN Q6HRS PRN PO MODERATE PAIN 4-6 Last administered on 04/06/20at 20:23; Start 04/01/20 at 20:30 Sodium Chloride 1,000 ml @ 150 mls/hr Q6H40M IV Last administered on 04/06/20at 06:58; Start 04/02/20 at 23:00 Sodium Polystyrene Sulfonate (Kayexalate) 15 gm 1X ONCE PO Last administered on 04/04/20at 13:51; Start 04/04/20 at 13:15; Stop 04/04/20 at 13:16; Status DC Haloperidol (Haldol) 5 mg QHS PRN PO AGITATION; Start 04/04/20 at 17:45; Stop 04/05/20 at 12:36; Status DC Lorazepam (Ativan) 1 mg PRN Q6HRS PRN PO ANXIETY / AGITATION Last administered on 04/06/20at 20:22; Start 04/04/20 at 17:45 Sodium Polystyrene Sulfonate (Kayexalate) 15 gm 1X ONCE PO Last administered on 04/05/20at 08:30; Start 04/05/20 at 08:30; Stop 04/05/20 at 08:31; Status DC Haloperidol (Haldol) 5 mg PRN QHS PRN PO AGITATION, 2ND CHOICE; Start 04/05/20 at 12:45 Active Scripts Active Protonix (Pantoprazole Sodium) 20 Mg Tablet.dr 1 Tab PO DAILY Ferrous Sulfate 325 Mg Tablet 1 Tab PO DAILY Ms Contin (Morphine Sulfate) 30 Mg Tablet.er 1 Tab PO BID Hydrea (Hydroxyurea) 500 Mg Capsule 500 Mg PO DAILY Oxycodone Hcl 30 Mg Tablet 30 Mg PO PRN Q6HRS PRN Folic Acid 1 Mg Tablet 1 Mg PO DAILY Vitals/I & O Vital Sign - Last 24 Hours 04/06/20 04/06/20 04/06/20 04/06/20 13:21 15:00 18:27 19:00 Temp 99.2 99.2 Pulse 94 82 Resp 12 12 20 B/P (MAP) 112/55 (74) 117/60 (79) Pulse Ox 91 O2 Delivery Room Air Room Air Room Air Room Air 04/06/20 04/06/20 04/06/20 04/07/20 20:23 21:23 23:00 03:00 Temp 98.6 98.9 98.6 98.9 Pulse 69 86 Resp 20 20 B/P (MAP) 128/71 (90) 108/61 (77) Pulse Ox 95 95 91 98 O2 Delivery Nasal Cannula Nasal Cannula Nasal Cannula Room Air O2 Flow Rate 2.0 2.0 04/07/20 07:00 Temp 97.8 97.8 Pulse 81 Resp 17 B/P (MAP) 122/52 (75) Pulse Ox 93 O2 Delivery Room Air Intake and Output 04/06/20 04/06/20 04/07/20 14:59 22:59 06:59 Intake Total 200 ml 600 ml 300 ml Balance 200 ml 600 ml 300 ml DAYTON CR MD Apr 07, 2020 11:44
--- NOTE | 2020-04-07 13:53 | PDOC3 ---
Discharge Summary Date of Admission: April 01, 2020 Date of Discharge: Apr 07, 2020 Follow-Up: 3-5 days Admitting Diagnosis comment: DISCHARGE DX ======= Acute anemia - 2/2 SCD crisis, improved. No Dilaudid given she is not awakening. Will type and screen, transfuse if Hb drops below 7 BUT PATIENT HAS REFUSED AMA Acute narcotic intoxication - h/o heroin abuse listed on her chart. Will try to avoid excessive opioids, but they are indicated for SCD pain crisis Sickle cell anemia - as above Elevated bilirubin - 2/2 SCD, will monitor MICHEAL - vasomotor nephropathy from SCD crisis, will hydrate Hyperkalemia - kayexelate, hydration FEN - 150cc/hr NSS, general diet PPX - lovenox FULL CODE DIspo - inpatient d/c pt refusing most treatments DESIRES TO GO HOME TODAY D/C PLANNING 24 MIN History of Present Illness History of Present Illness Ms Krishnan is a 29 yo M (trans female) w/ PMHx sickle cell disease who presents to the emergency room complaining of sickle cell pain crisis. Upon arrival to the emergency room patient is lethargic and became hypoxic when sleeping. Patient admits to taking Dilaudid 1 hour prior to arrival. Found hypoxic into the mid 80s, placed on nasal cannula. Hb 7, reticulocyte 14, bilirubin 2.9, CR 1.5. Placed on IV fluids and admitted for further care 04/02: Hb 6.5. REFUSED TRANSFUSION THIS AM 04/03: Hb 7 today. Patient tells me "back pain", then rubs eyes for 3.5 minutes, snores and does not respond, but opens eyes wide to sternal rub. Per nursing staff has been eating voraciously, and refusing nearly all medical therapies did not ask for pain medication until an hour ago had been off pain medication for over a day. Creatinine improved to 1.2, LFTs improved. 04/04: Only required 1 dose of p.o. oxycodone 5 mg over the past 18 hours. K5.8, CR 1.1, Hb 6.4. She refused opening eyes examined during examination despite request. She says he took my IV pain medication away and needed IV pain medication for her back. "I am Mike and I am going to burn down off [place]". When asked if she has plans to hurt herself or others specifically she says "I am just cannot burn the whole world down while here". When offered blood transfusion she says blood transfusions kill people I will never have a blood transfusion. Refuses answer when asked if she has had a blood transfusion previously. 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 04/05: Hb 6.3, K5.4. D/W psychiatric social work liaison yesterday about behavioral issues, found that patient has been institutionalized [facility] twice in the past few years for violent and psychotic behavior and has been diagnosed with schizophrenia. Not on meds. Continues to refuse blood transfusion, requesting IV pain medication. Today refuses to speak with me keeps eyes closed. After leave the room walks on the room goes to the refrigerator and takes all of the putting bumps on the shoulder and walks back in the room. Afebrile overnight. Still on 2L NC O2. Hb 6.1, still refusing transfusion. K4.8. VS stable. Refuses to verbally engage with me or open eyes. CXR obtained with stable cardiomegaly no acute infiltrates, and old appearing left- sided rib and scapular trauma since prior CXR in 2018. Plan: No further IV pain medications. D/W RN, not safe to discharge actively psychotic Appreciate psychiatric assistance with her care, will d/w PAT team if home is a safe d/c plan. Cont to offer transfusion Vitals Vitals Vital Signs Date Time Temp Pulse Resp B/P (MAP) Pulse Ox O2 Delivery O2 Flow Rate FiO2 04/07/20 07:00 97.8 81 17 122/52 (75) 93 Room Air 97.8 04/06/20 23:00 2.0 Physical Exam General: Alert, Oriented X3, Cooperative, Lungs: Clear Abdomen: Normal bowel sounds, Soft, No tenderness, No hepatosplenomegaly, No masses Extremities: No clubbing, No cyanosis, No edema, Normal pulses, No tenderness/swelling Skin: No rashes, No breakdown, No significant lesion FINAL DIAGNOSIS Problems Medical Problems: (1) Acute narcotic intoxication Status: Acute Brief Hospital Course Mr. Krishnan is a 29 old [sex] who presented with [ SS CRISIS] CONDITION AT DISCHARGE: Improved Discharge Medications Current Medications Sodium Chloride 1,000 ml @ 0 mls/hr 1X ONCE IV Last administered on 04/01/20at 17:48; Start 04/01/20 at 17:15; Stop 04/01/20 at 17:16; Status DC Naloxone HCl (Narcan) 0.4 mg 1X ONCE IV Last administered on 04/01/20at 19:19; Start 04/01/20 at 19:00; Stop 04/01/20 at 19:01; Status DC Ferrous Sulfate (Feosol) 325 mg DAILY PO Last administered on 04/06/20at 08:58; Start 04/02/20 at 09:00 Pantoprazole Sodium (Protonix) 40 mg DAILYAC PO Last administered on 04/06/20at 08:58; Start 04/02/20 at 07:30 Sodium Chloride 1,000 ml @ 150 mls/hr Q6H40M IV Last administered on 04/02/20at 23:00; Start 04/01/20 at 21:00; Stop 04/03/20 at 00:33; Status DC Ondansetron HCl (Zofran) 4 mg PRN Q4HRS PRN IV NAUSEA/VOMITING 1ST CHOICE; Start 04/01/20 at 20:30 Acetaminophen (Tylenol) 650 mg PRN Q4HRS PRN PO TEMP OVER 100.4F OR MILD PAIN; Start 04/01/20 at 20:30 Hydromorphone HCl (Dilaudid) 0.5 mg PRN Q2HRS PRN IV SEVERE PAIN 7-10 Last administered on 04/02/20at 17:13; Start 04/01/20 at 20:30; Stop 04/03/20 at 13:15; Status DC Enoxaparin Sodium (Lovenox 40mg Syringe) 40 mg Q24H SQ ; Start 04/01/20 at 21:00 Oxycodone HCl (Roxicodone) 5 mg PRN Q6HRS PRN PO MODERATE PAIN 4-6 Last administered on 04/06/20at 20:23; Start 04/01/20 at 20:30 Sodium Chloride 1,000 ml @ 150 mls/hr Q6H40M IV Last administered on 04/06/20at 06:58; Start 04/02/20 at 23:00 Sodium Polystyrene Sulfonate (Kayexalate) 15 gm 1X ONCE PO Last administered on 04/04/20at 13:51; Start 04/04/20 at 13:15; Stop 04/04/20 at 13:16; Status DC Haloperidol (Haldol) 5 mg QHS PRN PO AGITATION; Start 04/04/20 at 17:45; Stop 04/05/20 at 12:36; Status DC Lorazepam (Ativan) 1 mg PRN Q6HRS PRN PO ANXIETY / AGITATION Last administered on 04/06/20at 20:22; Start 04/04/20 at 17:45 Sodium Polystyrene Sulfonate (Kayexalate) 15 gm 1X ONCE PO Last administered on 04/05/20at 08:30; Start 04/05/20 at 08:30; Stop 04/05/20 at 08:31; Status DC Haloperidol (Haldol) 5 mg PRN QHS PRN PO AGITATION, 2ND CHOICE; Start 04/05/20 at 12:45 Active Scripts Active Protonix (Pantoprazole Sodium) 20 Mg Tablet.dr 1 Tab PO DAILY Ferrous Sulfate 325 Mg Tablet 1 Tab PO DAILY Ms Contin (Morphine Sulfate) 30 Mg Tablet.er 1 Tab PO BID Hydrea (Hydroxyurea) 500 Mg Capsule 500 Mg PO DAILY Oxycodone Hcl 30 Mg Tablet 30 Mg PO PRN Q6HRS PRN Folic Acid 1 Mg Tablet 1 Mg PO DAILY Vital Signs Vital Signs Date Time Temp Pulse Resp B/P (MAP) Pulse Ox O2 Delivery O2 Flow Rate FiO2 04/07/20 11:00 93 17 119/60 (79) 92 Room Air 04/07/20 07:00 97.8 97.8 04/06/20 23:00 2.0 Labs Laboratory Tests Test 04/06/20 04:19 White Blood Count 12.5 x10^3/uL (4.0-11.0) Red Blood Count 1.73 x10^6/uL (4.30-5.70) Hemoglobin 6.1 g/dL (13.0-17.5) Hematocrit 16.7 % (39.0-53.0) Mean Corpuscular Volume 97 fL (79-100) Mean Corpuscular Hemoglobin 35 pg (25-35) Mean Corpuscular Hemoglobin Concent 37 g/dL (31-37) Red Cell Distribution Width 22.9 % (11.5-14.5) Platelet Count 310 x10^3/uL (140-400) Neutrophils (%) (Auto) 46 % (31-73) Lymphocytes (%) (Auto) 32 % (24-48) Monocytes (%) (Auto) 17 % (0-9) Eosinophils (%) (Auto) 4 % (0-3) Basophils (%) (Auto) 1 % (0-3) Neutrophils # (Auto) 5.8 x10^3/uL (1.8-7.7) Lymphocytes # (Auto) 4.0 x10^3/uL (1.0-4.8) Monocytes # (Auto) 2.1 x10^3/uL (0.0-1.1) Eosinophils # (Auto) 0.5 x10^3/uL (0.0-0.7) Basophils # (Auto) 0.2 x10^3/uL (0.0-0.2) Absolute Reticulocyte Count 0.166 x10^6/uL (0.020-0.120) Percent Reticulocyte Count 9.6 % (0.5-2.3) Immature Reticulocyte Fraction 0.80 (0.20-0.60) Sodium Level 140 mmol/L (136-145) Potassium Level 4.7 mmol/L (3.5-5.1) Chloride Level 107 mmol/L (98-107) Carbon Dioxide Level 24 mmol/L (21-32) Anion Gap 9 (6-14) Blood Urea Nitrogen 14 mg/dL (8-26) Creatinine 1.2 mg/dL (0.7-1.3) Estimated GFR (Cockcroft-Gault) 87.2 BUN/Creatinine Ratio 12 (6-20) Glucose Level 77 mg/dL (70-99) Calcium Level 8.1 mg/dL (8.5-10.1) Total Bilirubin 1.9 mg/dL (0.2-1.0) Aspartate Amino Transf (AST/SGOT) 66 U/L (15-37) Alanine Aminotransferase (ALT/SGPT) 32 U/L (16-63) Alkaline Phosphatase 48 U/L (46-116) Total Protein 6.3 g/dL (6.4-8.2) Albumin 3.3 g/dL (3.4-5.0) Albumin/Globulin Ratio 1.1 (1.0-1.7) Allergies Allergies Coded Allergies Type Severity Reaction Last Updated Verified shellfish derived Allergy Intermediate 04/02/20 Yes Disposition/Orders: D/C to Home (REFUSING TREATMENTS AMA) Justicifation of Admission Dx: Justifications for Admission: Justification of Admission Dx: Yes CHF: Hemodynamic Instability Aspiration Pneumonia: Hemodynamic Instability DAYTON CR MD Apr 07, 2020 13:53
[2020-04-07] MEDS ORDERED: ACET325T9 PO (13:54)
--- NOTE | 2020-04-07 13:55 | DISCH ---
DISCHARGE INSTRUCTIONS Condition on Discharge Condition on Discharge: Guarded Activity After Discharge Activity Instructions for Disc: Activity as tolerated, Avoid exertion Driving Instructions after Dis: Do not drive Diet after Discharge Diet after Discharge: Regular Liquid Texture: Thin Liquid Checks after Discharge Checks after discharge: Check blood press - daily Contacting the DR. after DC Call your doctor for: If your condition worsens DAYTON CR MD Apr 07, 2020 13:55
--- NOTE | 2020-04-07 15:25 | NUR ---
Discharge Note: DANIEL ZULUAGA [address] Discharge instructions and discharge home medications reviewed with Patient and a copy given. All questions have been answered and understanding verbalized. The following instructions and handouts were given: patient visit report, medication information, education. Discontinued lines and drains: peripheral IV, tip intact. Patient discharged to home with self care via private vehicle. Patient left unit awake, in stable condition, with all personal belongings.
== END 2020-04-07 15:30 | disposition home or self-care (01) | DRG 70 ==
LOC: ER 16:53 → ED HOLD 20:37 → 4 NORTH 23:05
PROVIDERS: ADMIT Internal Medicine; ATTEND Internal Medicine
DX: G93.40 Encephalopathy, unspecified (principal); N17.0 Acute kidney failure with tubular necrosis; D57.00 Hb-SS disease with crisis, unspecified; T40.605A Adverse effect of unspecified narcotics, initial encounter; E87.5 Hyperkalemia; F17.210 Nicotine dependence, cigarettes, uncomplicated; F11.920 Opioid use, unspecified with intoxication, uncomplicated; F20.9 Schizophrenia, unspecified; F39 Unspecified mood [affective] disorder; F41.9 Anxiety disorder, unspecified; I51.7 Cardiomegaly; R09.02 Hypoxemia; Z81.8 Family history of other mental and behavioral disorders; Z90.49 Acquired absence of other specified parts of digestive tract; Z91.19 Patient's noncompliance with other medical treatment and regimen; Z79.899 Other long term (current) drug therapy; Z53.29 Procedure and treatment not carried out because of patient's decision for other reasons
CPT/HCPCS: 36415; 71045; 80048; 80053; 82962; 85007; 85025; 85045; 86850; 86900; 86901; 86920; J1170; J1650; J2310; J7030; G0378